=== PATIENT | female | born 1950 | race Two or more races ===

== ENCOUNTER 2020-09-22 15:38 | Emergency (ER) | payer MEDICARE, MEDICAID, SELFPAY ==
--- NOTE | ~2020-09-22 | XR_ITS ---
EXAMINATION: XR TOES, RIGHT CLINICAL INFORMATION: Fracture fifth toe COMPARISON: None TECHNIQUE: 3 views of the right toes were obtained. FINDINGS: There is loss of first MTP joint with mild periarticular spurring. There is no fracture or dislocation of the fifth digit. There is soft tissue callus formation along the proximal second metatarsal joint likely from a healing stress fracture.. The soft tissues are unremarkable. XR/XR toe RT min 2V IMPRESSION: No fracture or dislocation fifth digit. The soft tissues are normal. There is callus formation proximal fifth metatarsal likely healing fracture.
[2020-09-22 15:47] VITALS: BP 160/70; PULSE 81; RESP 16; TEMP 36.5; O2SAT 98; BMI 21.7
--- NOTE | 2020-09-22 16:09 | ED_ITS ---
HPI - Extremity Injury (Lower) General Chief Complaint: Extremity Injury, Lower Stated Complaint: PINKY TOE INJ Time Seen by Provider: 09/22/20 15:49 Source: patient Mode of arrival: ambulatory Limitations: no limitations History of Present Illness HPI Narrative: Patient comes emergency room complaining of 5th toe pain. Patient states 2 days ago she was walking barefooted around her house, she hit her toe against the base of the sofa. Patient states her pinky toe is swollen and painful and cannot wear shoes because it hurts Related Data Allergies Allergy/AdvReac Type Severity Reaction Status Date / Time ibuprofen [From Motrin] Allergy Nausea Verified 09/22/20 15:52 Review of Systems Review of Systems: Constitutional : No Weight loss, No Fever, No Chills, No Night Sweats, No Fatigue, No Malaise ENT/Mouth : No Hearing loss, No Ear Pain, No Nasal Congestion, No Sinus Pain, No Hoarseness, No sore throat, No Rhinorrhea, No Swallowing Difficulty Eyes: No Eye Pain, No Swelling, No Redness, No Foreign Body, No Discharge, No Vision Changes Cardiovascular : No Chest Pain, No SOB, No Dyspnea on Exertion, No Orthopnea, No Edema, No Palpitations Respiratory : No Cough, No Sputum, No Wheezing, No Smoke Exposure, No Dyspnea Gastrointestinal : No Nausea, No Vomiting, No Diarrhea, No Constipation, No abdominal Pain, No Hematochezia, No Melena Genitourinary : no irregular bleeding, No Dysuria, No Urinary Frequency, No Hematuria, No Urinary Incontinence, No Urgency, No Flank Pain, No Urinary Flow Changes, No Hesitancy Musculoskeletal : Right 5th toe pain swelling, No Myalgias Skin : No Skin Lesions, No rash Neuro : No Weakness, No Numbness, No Paresthesias, No Loss of Consciousness, No Dizziness, No Headache Psych : No Anxiety/Panic, No Depression, No SI/HI/AH/VH, No Social Issues, Heme/Lymph: No Bruising, No Bleeding,No Lymphadenopathy Endocrine : No Polyuria, No Polydipsia, No Temperature Intolerance [facility] Past Medical History Medical History (Updated 09/22/20 @ 17:31 by Latonia Norton MD) Asthma Depression Occlusion of femoral artery Social History Social History Alcohol intake: never Smoked in Last 30 Days: No Use of substances other than those prescribed or required for medical reasons: No Advance Directives: No Advance Directives Information Provided: Yes Physical Exam Vital Signs: Vital Signs: Last Vital Signs Temp 97.7 F 09/22/20 15:47 Pulse 81 09/22/20 15:47 Resp 16 09/22/20 15:47 BP 160/70 H 09/22/20 15:47 Pulse Ox 98 09/22/20 15:47 Body Mass Index 21.7 Appearance: Alert. Oriented X3. No acute distress. Eyes: Pupils equal, round and reactive to light. ENT: Pharynx normal. Neck: Normal inspection. Neck supple. No lymph nodes noted. No crepitus CVS: Normal heart rate and rhythm. Pulses normal. Normal S1 and S2 Respiratory: No respiratory distress. Breath sounds normal. No Wheezing. No rales Abdomen: Soft and nontender. No rigidity. No distention. good BS x4 Skin: Skin warm and dry. Normal skin color. Normal skin turgor. Extremities: No lower extremity edema. Fifth toe mild to moderate swelling, no cellulitis, painful to touch. No metatarsal pain to palpation, color of the other 4 toes within normal limits, 5th toe has very mild ecchymosis Neuro: Oriented X 3. No motor deficit. No sensory deficit. Moving all extermities. No slurred speech. Course Course Course Narrative: I discussed the x-ray with the patient, no acute fracture. Patient's pain likely secondary to a contusion MDM - Extremity Injury (Lower) Imaging Data Toe x-ray: Radiologist's impression: FINDINGS: There is loss of first MTP joint with mild periarticular spurring. There is no fracture or dislocation of the fifth digit. There is soft tissue callus formation along the proximal second metatarsal joint likely from a healing stress fracture.. The soft tissues are unremarkable. XR/XR toe RT min 2V IMPRESSION: No fracture or dislocation fifth digit. The soft tissues are normal. There is callus formation proximal fifth metatarsal likely healing fracture. Discharge Plan Discharge Clinical Impression: Contusion Qualifiers: Encounter type: initial encounter Contusion area: toe Toe: unspecified toe Laterality: right Qualified Code(s): S90.121A - Contusion of right lesser toe(s) without damage to nail, initial encounter Patient Disposition: Home, Self-Care Instructions: Foot Contusion (ED) Additional Instructions: Please follow-up with your primary care physician tomorrow. If you have any worsening or new symptoms, please return to the emergency room or call 911
== END 2020-09-22 17:48 | disposition home or self-care (01) ==
PROVIDERS: Emergency Provider Emergency Medicine; PCP Internal Medicine
DX: S90.121A Contusion of right lesser toe(s) without damage to nail, initial encounter (principal); M79.674 Pain in right toe(s); Y29.XXXA Contact with blunt object, undetermined intent, initial encounter; Y93.9 Activity, unspecified; Y92.009 Unspecified place in unspecified non-institutional (private) residence as the place of occurrence of the external cause; Y99.9 Unspecified external cause status
CPT/HCPCS: 73660; 99283; 99284

== ENCOUNTER 2022-01-23 12:24 | Emergency (ER) | payer MEDICARE, MEDICAID, SELFPAY ==
--- NOTE | ~2022-01-23 | MR_ITS ---
EXAMINATION: MR ABDOMEN WITHOUT CONTRAST CLINICAL INFORMATION: History of abdominal pain and weight loss. Dilated bile ducts seen on abdomen CT. COMPARISON: CT abdomen from 01/24/2022. TECHNIQUE: MR imaging of the abdomen performed using standard sequences on a high-field magnet without intravenous contrast. FINDINGS: LUNG BASES: Unremarkable. LIVER: Liver has normal size, contour and parenchymal signal. No hepatic mass. No cirrhotic morphology or steatosis. GALLBLADDER AND BILIARY TREE: Gallbladder is surgically absent. The central right and left intrahepatic ducts are mildly dilated. The common hepatic duct and common bile duct are dilated, with CBD measuring approximately 1 cm diameter at the level of the pancreatic head. No evidence of common duct stricture or choledocholithiasis. The chronicity of the duct dilatation is uncertain since there are no old comparison imaging exams. There is no evidence of an ampullary mass. PANCREAS: No acute findings within the atrophied pancreas. No pancreatic mass, ductal dilatation or edema. No peripancreatic fluid. SPLEEN: Normal. ADRENAL GLANDS: Normal. KIDNEYS: Kidneys are normal in size and parenchymal signal. No renal mass, hydronephrosis or perinephric edema. BOWEL AND PERITONEUM: Stomach is unremarkable. No dilated loops of bowel. No bowel wall thickening or mesenteric fat stranding. No ascites or peritoneal nodules. VASCULATURE: The atherosclerotic abdominal aorta is normal in caliber. Inferior vena cava is normal for a noncontrast examination. LYMPH NODES: No pathologic sized lymph nodes in the abdomen. SKELETAL: No suspicious bone lesions. There is susceptibility artifact produced by intervertebral fusion cages at L5-S1. MR/MR MRCP IMPRESSION: Prior cholecystectomy. The common duct and central intrahepatic ducts are dilated. The chronicity of the ductal dilatation is uncertain since there are no old comparison exams. However, no evidence of choledocholithiasis or obstructing mass.
--- NOTE | ~2022-01-23 | CT_ITS ---
EXAMINATION: CT ABDOMEN AND PELVIS WITH CONTRAST CLINICAL INFORMATION: Abdominal pain, weight loss COMPARISON: None TECHNIQUE: Multidetector volumetric images were obtained from the superior aspect of the liver through the pubic symphysis following administration 85 mL of Omnipaque 350 intravenous contrast. Sagittal and coronal reformatted images were obtained on the technologist's workstation. Oral contrast: No This CT examination was performed using dose optimization techniques as appropriate, variously including the following: *Automated exposure control *Adjustment of mA and/or kV according to patient size (this includes techniques or standardized protocols for targeted exams where dose is matched to indication/reason for exam; i.e. extremities or head) *Use of iterative reconstruction technique DLP: 247 mGy-cm FINDINGS: LUNG BASES: The visualized lung bases are unremarkable. LIVER, GALLBLADDER, AND BILIARY TREE: The liver is normal in size, shape, and attenuation. Status post cholecystectomy. There is intrahepatic and extrahepatic biliary ductal dilatation of uncertain clinical significance in this setting. PANCREAS: Unremarkable. SPLEEN: Unremarkable. ADRENAL GLANDS: Unremarkable. KIDNEYS AND URETERS: The kidneys are normal in size, shape, and attenuation. Multifocal cortical scarring noted in the left kidney. No hydronephrosis, hydroureter, or obstructing calculi seen. No perinephric stranding. BLADDER: Unremarkable. GASTROINTESTINAL TRACT: No evidence of bowel obstruction. The sigmoid colon is tortuous. No significant bowel wall thickening is seen. No free fluid or free air is seen. ABDOMINAL WALL: No significant hernia is appreciated. LYMPH NODES: Normal. VASCULAR: Scattered prostatic calcifications. PELVIC VISCERA: Grossly unremarkable. OSSEOUS STRUCTURES: Intervertebral disc hardware noted at L5-S1. CT/CT abdomen pelvis w con IMPRESSION: Intrahepatic and extrahepatic biliary ductal dilatation, of uncertain clinical significance in the setting of prior cholecystectomy. Correlation with liver function tests is advised. If clinically warranted, evaluation for distal common bile duct obstruction could be performed with MRI/MRCP or ERCP.
[2022-01-23 12:26] VITALS: BP 178/73; PULSE 80; RESP 18; TEMP 36.7; O2SAT 98; BMI 17.4
[2022-01-23 16:52] LABS: MANUAL DIFF FLAG NO
[2022-01-23 16:55] LABS: Basophils Absolute Auto 0.1 X10*3/uL (0.0-0.2); Basophils Percent Auto 1.1 % (0-2); Eosinophils Percent Auto 0.8 % (0-4); Hematocrit 39.7 % (37.0-47.0); Hemoglobin 13.4 g/dl (12.0-16.0); Imm Gran Abs Auto 0.01 X10*3/uL (0.00-0.03); Imm Gran Pct Auto 0.2 % (0.0-0.4); Lymphocytes Absolute Auto 2.1 X10*3/uL (1.2-4.9); Lymphocytes Percent Auto 39.7 % (20-40); Mean Corpuscular HGB Conc 33.8 g/dl (31.0-35.0); Mean Corpuscular Hemoglobin 30.8 pg (27.0-33.0); Mean Corpuscular Volume 91.3 fL (80.0-98.0); Mean Platelet Volume 10.1 fL (9.4-12.3); Monocytes Absolute Auto 0.3 X10*3/uL (0.1-1.2); Monocytes Percent Auto 5.6 % (2-11); Neutrophils Absolute Auto 2.8 x10*3/uL (2.0-8.3); Neutrophils Percent Auto 52.6 % (45-73); Platelet Count 261 X10*3/uL (160-400); Red Blood Count 4.35 X10*6/uL (4.20-5.50); Red Cell Distribution Width 12.7 % (11.0-16.0); White Blood Count 5.2 X10*3/uL (4.8-10.8)
[2022-01-23 17:26] LABS: Alanine Aminotransferase 13 U/L (0-31); Albumin Level 4.2 g/dL (3.5-5.0); Alkaline Phosphatase 85 U/L (39-117); Anion Gap 14 (12-20); Aspartate Amino Transferase 18 U/L (5-31); Bilirubin Total 0.6 mg/dL (0.0-1.0); Blood Urea Nitrogen 12 mg/dL (9-16); Calcium 8.7 mg/dL (8.4-10.2); Carbon Dioxide 20 mmol/L (22-29); Chloride 107 mmol/L (96-108); Creatinine Clr Calc Pharmacy 50.8; Estimated Glomerular Filt Rate > 60; Glucose Random 108 mg/dL (60-115); Potassium 4.1 mmol/L (3.3-5.1); Sodium 137 mmol/L (135-145); Total Protein 7.1 g/dL (6.5-8.0)
[2022-01-23 23:54] VITALS: BP 185/65; PULSE 74; RESP 20; TEMP 36.9; O2SAT 99
--- NOTE | 2022-01-24 | ED.GENADULT ---
HPI - General Adult General Chief complaint: General Medical Stated complaint: Headache/Abd pain Time Seen by Provider: 01/23/22 20:17 Source: patient Mode of arrival: ambulatory Limitations: no limitations History of Present Illness HPI narrative: 71-year-old female came in for evaluation of abdominal pain and nonbloody watery diarrhea. For the last 3 days been complaining of mid abdominal pain with nonbloody watery diarrhea last bowel movement was this morning, patient stated she also lost about 50 lb over the past year, patient had recent colonoscopy reportedly by the patient had multiple precancerous polyp that was removed patient is scheduled to have next colonoscopy in 1 year. Abdominal pain started 3 days ago to the left lower abdomen which is constant moderate 5/10 described as dull aching pain with no radiation, pain is associated with nonbloody watery diarrhea, patient declined any recent travel, patient had a recent use of antibiotic 2 weeks ago, no fever, no chills. Patient had a history of pancreatitis followed by surgical removal of the gallbladder Many years ago. Related Data Allergies Allergy/AdvReac Type Severity Reaction Status Date / Time ibuprofen [From Motrin] Allergy Nausea Verified 09/22/20 15:52 Review of Systems Review of Systems: All other systems are reviewed and are negative Constitutional: Reports as per HPI and Reports no additional constitutional complaints Eyes: Reports as per HPI and Reports no additional eye complaints Reports system reviewed and no additional complaints, except as documented Cardiovascular: Reports as per HPI and Reports no additional cardiovascular complaints Respiratory: Reports as per HPI and Reports no additional respiratory complaints Gastrointestinal: Reports as per HPI and Reports no additional gastrointestinal complaints Genitourinary: Reports no additional female genitourinary complaints Musculoskeletal: Reports no additional musculoskeletal complaints Skin/Breast: Reports system reviewed and no additional complaints, except as docu Psychiatric: Reports no additional psychiatric complaints Endocrine: Reports no additional endocrine complaints Hematologic/Lymphatic: Reports no additional hematologic/lymphatic complaints Allergic/Immunologic: Reports no additional allergic/immunologic complaints Reports system reviewed and no additional complaints, except as documented and Reports Abnormal speech present [facility] Past Medical History Medical History Asthma Depression Occlusion of femoral artery Social History Social History Alcohol intake: never Advance Directives: No Physical Exam ED Vital Signs: Vital Signs - 24 hr 07/18/22 12:26 01/23/22 23:54 01/24/22 00:09 Temperature 98.0 F 98.4 F Pulse Rate 80 74 70 Respiratory Rate 18 20 14 Blood Pressure 178/73 H 185/65 H 187/76 H Pulse Oximetry 98 99 99 Oxygen Delivery Method Room Air Room Air Room Air 01/24/22 01:56 Temperature Pulse Rate Respiratory Rate 20 Blood Pressure Pulse Oximetry Oxygen Delivery Method BMI result Body Mass Index 17.4 vital signs have been reviewed as appeared to be correct. Blood pressure normal. Heart rate normal. Respiration rate normal. Temperature normal. Oxygen saturation normal. Appearance: Alert. Oriented X3. No acute distress. Head: Normal external exam. Normocephalic. Atraumatic. No Liang signs noted. No raccoon eyes noted Eyes: PERRLA. EOMI. Conjunctiva and sclera normal. Eyelids normal. ENT: TM's Normal. Pharynx normal. Uvula midline. Moist mucous membranes. No trismus noted. No drooling noted. No muffled voice noted. Neck: Normal inspection. Neck supple. FROM. No adenopathy. Thyroid Normal. No meningeal signs. No neck mass noted. CVS: Normal heart rate and rhythm. Heart sound normal. No murmurs noted. Pulses normal throughout. Respiratory: No respiratory distress. Painless inspiration. Breath sounds normal. No wheezes/rales/rhonchi noted. Chest nontender. No accessory muscle usage noted or decreased air movement noted. Abdomen: Soft, mild left abdominal tenderness with no rebound tenderness, no guarding.. Bowel sounds normal in all 4 quadrants. No distention noted. No organomegaly noted. No visible injury noted. Back: No CVA tenderness. Full range of motion noted. Skin: Skin warm and dry. Normal skin color. Normal skin turgor. No rashes/lesions/lacerations noted. Extremities: No lower extremity edema. Extremities exhibit normal range of motion. Extremities nontender. Neuro: Oriented X 3. Cranial nerve exam: II-XII are grossly intact No motor deficit. No sensory deficit. Reflexes normal. Course Course Course Narrative: 71-year-old female with abdominal pain that is worsening over the past 3 days, CT of the abdomen pelvis showed extrahepatic biliary dilatation , patient status post cholecystectomy since patient is still symptomatic with severe abdominal pain that required multiple doses of narcotic and unexplainable 50 lb loss of weight will consider MRCP in the morning. the case signed out to Dr. Decker. Medical Decision Making Lab Data Lab results reviewed: Yes I reviewed the patient's lab results. Result diagrams: 01/23/22 16:48 01/23/22 16:48 Labs: Lab Results 01/23/22 01/23/22 01/24/22 Range/Units 16:48 16:48 00:08 WBC 5.2 (4.8-10.8) X10*3/uL RBC 4.35 (4.20-5.50) X10*6/uL Hgb 13.4 (12.0-16.0) g/dl Hct 39.7 (37.0-47.0) % MCV 91.3 (80.0-98.0) fL MCH 30.8 (27.0-33.0) pg MCHC 33.8 (31.0-35.0) g/dl RDW 12.7 (11.0-16.0) % Plt Count 261 (160-400) X10*3/uL MPV 10.1 (9.4-12.3) fL Immature Gran % (Auto) 0.2 (0.0-0.4) % Neut % (Auto) 52.6 (45-73) % Lymph % (Auto) 39.7 (20-40) % Martin % (Auto) 5.6 (2-11) % Eos % (Auto) 0.8 (0-4) % Baso % (Auto) 1.1 (0-2) % Lymph # (Auto) 2.1 (1.2-4.9) X10*3/uL Martin # (Auto) 0.3 (0.1-1.2) X10*3/uL Eos # (Auto) 0.0 (0.0-0.4) X10*3/uL Baso # (Auto) 0.1 (0.0-0.2) X10*3/uL Abs Immat Gran (auto) 0.01 (0.00-0.03) X10*3/uL Absolute Neuts (auto) 2.8 (2.0-8.3) x10*3/uL Absolute Nucleated RBC 0.000 (0.0-0.012) X10*3/uL Nucleated RBC % (auto) 0.0 (0.0-0.2) /100WBC Sodium 137 (135-145) mmol/L Potassium 4.1 (3.3-5.1) mmol/L Chloride 107 (96-108) mmol/L Carbon Dioxide 20 L (22-29) mmol/L Anion Gap 14 (12-20) BUN 12 (9-16) mg/dL Creatinine 0.71 (0.5-1.4) mg/dL Estim Creat Clear Calc 50.8 Estimated GFR > 60 Random Glucose 108 (60-115) mg/dL Calcium 8.7 (8.4-10.2) mg/dL Total Bilirubin 0.6 (0.0-1.0) mg/dL AST 18 (5-31) U/L ALT 13 (0-31) U/L Alkaline Phosphatase 85 (39-117) U/L Total Protein 7.1 (6.5-8.0) g/dL Albumin 4.2 (3.5-5.0) g/dL Lipase 9 (8-78) U/L Urine Color Urine Appearance Urine pH (5.0-8.0) Ur Specific Ullin (1.005-1.025) Urine Protein (NEG-TRACE) MG/DL Urine Glucose (UA) (NEG) MG/DL Urine Ketones (NEG) MG/DL Urine Blood (NEG) Urine Nitrite (NEG) Ur Leukocyte Esterase (NEG) Urine RBC (0) /HPF Urine WBC (0-4) /HPF Ur Squamous Epith Cells /LPF Urine Bacteria /LPF Urine Mucus /LPF COVID-19 (DEBBIE) Negative (Negative) COVID-19 Clin Com See Note 01/24/22 Range/Units 00:08 WBC (4.8-10.8) X10*3/uL RBC (4.20-5.50) X10*6/uL Hgb (12.0-16.0) g/dl Hct (37.0-47.0) % MCV (80.0-98.0) fL MCH (27.0-33.0) pg MCHC (31.0-35.0) g/dl RDW (11.0-16.0) % Plt Count (160-400) X10*3/uL MPV (9.4-12.3) fL Immature Gran % (Auto) (0.0-0.4) % Neut % (Auto) (45-73) % Lymph % (Auto) (20-40) % Martin % (Auto) (2-11) % Eos % (Auto) (0-4) % Baso % (Auto) (0-2) % Lymph # (Auto) (1.2-4.9) X10*3/uL Martin # (Auto) (0.1-1.2) X10*3/uL Eos # (Auto) (0.0-0.4) X10*3/uL Baso # (Auto) (0.0-0.2) X10*3/uL Abs Immat Gran (auto) (0.00-0.03) X10*3/uL Absolute Neuts (auto) (2.0-8.3) x10*3/uL Absolute Nucleated RBC (0.0-0.012) X10*3/uL Nucleated RBC % (auto) (0.0-0.2) /100WBC Sodium (135-145) mmol/L Potassium (3.3-5.1) mmol/L Chloride (96-108) mmol/L Carbon Dioxide (22-29) mmol/L Anion Gap (12-20) BUN (9-16) mg/dL Creatinine (0.5-1.4) mg/dL Estim Creat Clear Calc Estimated GFR Random Glucose (60-115) mg/dL Calcium (8.4-10.2) mg/dL Total Bilirubin (0.0-1.0) mg/dL AST (5-31) U/L ALT (0-31) U/L Alkaline Phosphatase (39-117) U/L Total Protein (6.5-8.0) g/dL Albumin (3.5-5.0) g/dL Lipase (8-78) U/L Urine Color YELLOW Urine Appearance CLEAR Urine pH 6.0 (5.0-8.0) Ur Specific Ullin 1.020 (1.005-1.025) Urine Protein NEG (NEG-TRACE) MG/DL Urine Glucose (UA) NEG (NEG) MG/DL Urine Ketones NEG (NEG) MG/DL Urine Blood 1+ H (NEG) Urine Nitrite NEG (NEG) Ur Leukocyte Esterase NEG (NEG) Urine RBC 1-4 (0) /HPF Urine WBC 1-4 (0-4) /HPF Ur Squamous Epith Cells 1+ /LPF Urine Bacteria 2+ /LPF Urine Mucus 2+ /LPF COVID-19 (DEBBIE) (Negative) COVID-19 Clin Com Imaging Data CT scan - abdomen: Attestation: I personally reviewed and interpreted this imaging study as follows: Radiologist's impression: Intrahepatic and extrahepatic biliary ductal dilatation, of uncertain clinical significance in the setting of prior cholecystectomy. Correlation with liver function tests is advised. If clinically warranted, evaluation for distal common bile duct obstruction could be performed with MRI/MRCP or ERCP. Discharge Plan Discharge Clinical Impression: Abdominal pain Patient Disposition: Still a Patient
[2022-01-24 00:09] VITALS: BP 187/76; PULSE 70; RESP 14; O2SAT 99
[2022-01-24 00:21] LABS: Lipase 9 U/L (8-78)
[2022-01-24 00:31] LABS: Appearance Urine CLEAR; Color Urine YELLOW; Glucose Urine UA NEG (NEG); Leukocyte Esterase Urine NEG (NEG); Nitrite Urine NEG (NEG); UACC Culture Trigger NO; Urine Blood 1+ (NEG); Urine Ketones NEG (NEG); Urine Protein NEG (NEG-TRACE)
[2022-01-24 00:45] LABS: Bacteria Urine 2+ /LPF; Mucus Urine 2+ /LPF; Squamous Epithelial Cell Urine 1+ /LPF
[2022-01-24 00:46] LABS: COVID-19 Test Negative (Negative)
[2022-01-24] MEDS: iohexoL 350 MG/ML 100 ML INFUS..BTL IV (00:51)
[2022-01-24] MEDS: 0.9 % Sodium Chloride 1,000 ML 999 ML IV (01:24)
[2022-01-24 01:56] VITALS: RESP 20
[2022-01-24] MEDS: Morphine Sulfate 2 MG/ML CARTRIDGE 1 MG IVPUSH (01:56)
[2022-01-24 06:08] VITALS: BP 154/56; PULSE 59; RESP 18; O2SAT 97
[2022-01-24 06:15] VITALS: RESP 18
[2022-01-24] MEDS: HYDROmorphone HCl 1 MG/ML SYRINGE IVPUSH (06:15)
[2022-01-24 08:06] VITALS: BP 163/57; PULSE 53; RESP 14; TEMP 36.6; O2SAT 95
== END 2022-01-24 11:28 | disposition home or self-care (01) ==
PROVIDERS: Emergency Medicine; Emergency Provider Emergency Medicine; PCP Internal Medicine
DX: R10.32 Left lower quadrant pain (principal); R63.4 Abnormal weight loss; Z68.1 Body mass index [BMI] 19.9 or less, adult; R19.7 Diarrhea, unspecified; K83.9 Disease of biliary tract, unspecified; Z20.822 Contact with and (suspected) exposure to COVID-19; Z87.891 Personal history of nicotine dependence; Z90.49 Acquired absence of other specified parts of digestive tract
CPT/HCPCS: 74177; 74181; 80053; 81001; 83690; 85025; 87635; 96361; 96374; 96375; 99284; 99285; J1170; J2270; Q9967

== ENCOUNTER 2023-02-22 21:26 | Emergency (ER) | payer MEDICARE, MEDICAID, SELFPAY ==
--- NOTE | ~2023-02-22 | CT_ITS ---
EXAMINATION: CT ABDOMEN AND PELVIS WITH CONTRAST CLINICAL INFORMATION: Lower abdominal pain COMPARISON: 01/24/2022 TECHNIQUE: Multidetector volumetric images were obtained from the superior aspect of the liver through the pubic symphysis following administration 85 mL of Omnipaque 350 intravenous contrast. Sagittal and coronal reformatted images were obtained on the technologist's workstation. Oral contrast: No This CT examination was performed using dose optimization techniques as appropriate, variously including the following: *Automated exposure control *Adjustment of mA and/or kV according to patient size (this includes techniques or standardized protocols for targeted exams where dose is matched to indication/reason for exam; i.e. extremities or head) *Use of iterative reconstruction technique DLP: 280 mGy-cm FINDINGS: LUNG BASES: Left basilar atelectasis. Normal heart size. LIVER, GALLBLADDER, AND BILIARY TREE: The liver is normal in size, shape, and attenuation. No focal hepatic lesion. Gallbladder is absent. There is intrahepatic and extrahepatic biliary ductal dilatation. The common bile duct measures 1 cm. No ductal filling defect seen. The appearance is similar to previous. PANCREAS: Unremarkable. SPLEEN: Unremarkable. ADRENAL GLANDS: Unremarkable. KIDNEYS AND URETERS: The kidneys are normal in size, shape, and attenuation. No hydronephrosis, hydroureter, or calculi seen. No perinephric stranding. BLADDER: Unremarkable. GASTROINTESTINAL TRACT: The stomach is unremarkable. Normal caliber small bowel. No obstruction. No colonic wall thickening or inflammation. Appendix not seen. No free air or free fluid. ABDOMINAL WALL: No significant hernia is appreciated. LYMPH NODES: Normal. VASCULAR: Normal caliber aorta with mild atherosclerotic calcification. PELVIC VISCERA: No pelvic mass. OSSEOUS STRUCTURES: No acute or suspicious osseous abnormality. Disc spacer at L5-S1. CT/CT abdomen pelvis w IV con IMPRESSION: 1. No acute findings in the abdomen or pelvis. No inflammatory changes. 2. Intrahepatic and extrahepatic biliary ductal dilatation is similar to previous imaging. Fleischner guidelines were followed.
[2023-02-22 21:32] VITALS: BP 146/68; PULSE 81; RESP 18; TEMP 36.6; O2SAT 98; BMI 18.3
[2023-02-22 21:57] LABS: MANUAL DIFF FLAG NO
[2023-02-22 21:58] LABS: Basophils Absolute Auto 0.1 X10*3/uL (0.0-0.2); Basophils Percent Auto 1.9 % (0-2); Eosinophils Absolute Auto 0.1 X10*3/uL (0.0-0.4); Eosinophils Percent Auto 2.3 % (0-4); Hematocrit 40.4 % (37.0-47.0); Hemoglobin 13.8 g/dl (12.0-16.0); Imm Gran Abs Auto 0.01 X10*3/uL (0.00-0.03); Imm Gran Pct Auto 0.2 % (0.0-0.4); Lymphocytes Absolute Auto 2.6 X10*3/uL (1.2-4.9); Lymphocytes Percent Auto 51.3 % (20-40); Mean Corpuscular HGB Conc 34.2 g/dl (31.0-35.0); Mean Corpuscular Hemoglobin 30.1 pg (27.0-33.0); Mean Corpuscular Volume 88.2 fL (80.0-98.0); Mean Platelet Volume 9.7 fL (9.4-12.3); Monocytes Absolute Auto 0.4 X10*3/uL (0.1-1.2); Monocytes Percent Auto 8.5 % (2-11); Neutrophils Absolute Auto 1.8 x10*3/uL (2.0-8.3); Neutrophils Percent Auto 35.8 % (45-73); Platelet Count 291 X10*3/uL (160-400); Red Blood Count 4.58 X10*6/uL (4.20-5.50); Red Cell Distribution Width 12.9 % (11.0-16.0); White Blood Count 5.2 X10*3/uL (4.8-10.8)
[2023-02-22 22:22] LABS: Alanine Aminotransferase 11 U/L (0-31); Albumin Level 4.1 g/dL (3.5-5.0); Alkaline Phosphatase 55 U/L (39-117); Anion Gap 12 (12-20); Aspartate Amino Transferase 18 U/L (5-31); Bilirubin Direct 0.2 mg/dL (0.0-0.5); Bilirubin Total 0.4 mg/dL (0.0-1.0); Blood Urea Nitrogen 12 mg/dL (9-16); Calcium 9.3 mg/dL (8.4-10.2); Carbon Dioxide 24 mmol/L (22-29); Chloride 105 mmol/L (96-108); Estimated Glomerular Filt Rate > 60; Glucose Random 111 mg/dL (60-115); Lipase 15 U/L (8-78); Potassium 3.6 mmol/L (3.3-5.1); Sodium 137 mmol/L (135-145); Total Protein 7.3 g/dL (6.5-8.0)
--- NOTE | 2023-02-23 00:50 | ED.GENADULT ---
HPI - General Adult General Chief complaint: Nausea/Vomiting/Diarrhea Stated complaint: Weakness/ N/V/D Time Seen by Provider: 02/23/23 00:28 Source: patient, RN notes reviewed and old records reviewed Mode of arrival: ambulatory Limitations: no limitations History of Present Illness HPI narrative: 72-year-old female presents for evaluation of abdominal pain. Patient has a history of GERD, asthma, depression, previous appendectomy, cholecystectomy She reports lower abdominal pain x6 days She has been nauseous and vomiting everything she tries to eat She continues to have watery stool and passed gas Denies any black or bloody stool She reports right and left lower abdominal pain that is 8/10 Denies any fevers or chills Denies any urinary complaints Patient denies any sick contacts, recent travel, recent antibiotic use No other complaints or concerns at this time Related Data Previous Rx's Medication Instructions Recorded omeprazole 20 mg capsule,delayed 20 mg PO BID 2 weeks #28 caps 01/24/22 release ondansetron 4 mg disintegrating 4 mg PO Q8H PRN nausea and 01/24/22 tablet vomiting #20 tabs ondansetron 4 mg disintegrating 4 mg PO Q8H PRN nausea and 02/23/23 tablet vomiting #20 tabs Allergies Allergy/AdvReac Type Severity Reaction Status Date / Time ibuprofen [From Motrin] Allergy Nausea Verified 02/22/23 21:37 Review of Systems Constitutional: Constitutional: Denies chills, Denies fever(s), Reports lethargy and Reports malaise Cardiovascular: Cardiovascular: Denies chest pain and Denies dyspnea Respiratory: Respiratory: Denies cough and Denies dyspnea Gastrointestinal: Gastrointestinal: Reports abdominal pain, Denies melena, Denies hematochezia, Reports diarrhea, Reports loose stools, Reports nausea, Reports vomiting and Denies hematemesis Genitourinary: Genitourinary: Denies dysuria Musculoskeletal: Musculoskeletal: Denies back pain Integumentary/Breasts: Skin/Breast: Denies rash PMFSH Past Medical History Medical History Asthma Depression Occlusion of femoral artery Social History Social History Alcohol intake: never Patient Tobacco Use Status: Former Tobacco user Smoked in Last 30 Days: No Use of substances other than those prescribed or required for medical reasons: No Advance Directives: No Advance Directives Information Provided: Yes Physical Exam ED Vital Signs: Vital Signs - 24 hr 02/22/23 21:32 02/23/23 00:55 Temperature 97.8 F 97.9 F Pulse Rate 81 67 Respiratory Rate 18 18 Blood Pressure 146/68 H 157/65 H Pulse Oximetry 98 97 Oxygen Delivery Method Room Air Room Air BMI result Body Mass Index 18.3 Const General: healthy appearing, comfortable, no acute distress, alert and awake Nutritional Appearance: well nourished Orientation/consciousness: patient oriented x3 HENMT Head: Yes normocephalic and Yes atraumatic Eyes Eyelids: Yes eyelids normal Conjunctivae: conjunctivae normal Sclerae: sclerae normal Corneas: corneas normal Pupils: Equal, round and reactive pupils present EOM: EOMs intact bilaterally Resp Effort & Inspection: normal respiratory effort, able to speak in complete sentences and not labored Cardio Rate: regular rate Rhythm: regular rhythm GI Inspection: No distended Palpation (GI): Soft to palpation, not firm and not rigid Auscultation: normoactive bowel sounds Skin General skin exam: no rashes or lesions noted and elasticity normal Neuro General: patient oriented x3 Cranial nerves: Yes Equal, round and reactive pupils present and Yes Bilaterally intact EOM present Cognition (Neuro): normal cognition Extrem Other: Moving all extremities well without any obvious deformities Course Reevaluation(s) Reevaluation #1: Patient's labs and CT resulted showing no concerning abnormalities. The patient has not given a stool sample or a urine sample. I have a low suspicion for urinary tract infection was this should not cause diarrhea and she also denies any burning with urination or urinary frequency. The patient likely be discharged will follow-up with her PCP regarding these test. She also has no risk factors for C diff so the sister to be less likely Time: 01:37 Medications Administered Generic Name Dose Route Start Last Admin Trade Name Freq PRN Reason Stop Dose Admin Sodium Chloride 1,000 mls @ 999 mls/hr 02/23/23 00:45 02/23/23 01:11 Ns IV 02/23/23 01:45 999 mls/hr .Q1H1M AURELIA Administration Discontinued Medications Generic Name Dose Route Start Last Admin Trade Name Freq PRN Reason Stop Dose Admin Iohexol 85 ml 02/23/23 00:50 02/23/23 00:51 Iohexol 350 Mg/Ml 100 Ml Infus..Btl IV 02/23/23 00:51 85 ml ONCE ONE Administration Morphine Sulfate 2 mg 02/23/23 00:32 02/23/23 01:12 Morphine Sulfate 2 Mg/Ml Cartridge IVPUSH 02/23/23 00:33 2 mg ONCE ONE Administration Protocol Ondansetron HCl 4 mg 02/23/23 00:32 02/23/23 01:12 Ondansetron Hcl 4 Mg/2 Ml Vial IVPUSH 02/23/23 00:33 4 mg ONCE ONE Administration Medical Decision Making Medical Decision Making MDM Narrative: 9-year-old female presents for evaluation of lower abdominal pain, diarrhea. She continues to pass gas, denies any black or bloody stool. She is quite tender on exam but is nondistended. Will still get a UA, stool study and she reports persistent watery diarrhea but she has no risk factors for C diff. Will get a CT scan of the abdomen pelvis with IV contrast to evaluate for colitis/diverticulitis. I have a low suspicion for bowel obstruction. Patient medicated fluids, morphine, Zofran. Labs are reassuring Differential Diagnosis Differential Diagnoses: The differential diagnosis associated with the presentation includes Acute diarrhea Colitis Diverticulitis Gastroenteritis Small bowel obstruction Ileus Lab Data MDM Lab Attestation statement: I reviewed the patient's lab results. No leukocytosis with a normal white count of 5.2, no left shift. No anemia. Normal platelet count of 291 K no electrolyte abnormalities. Normal renal function and normal liver function tests 02/22/23 21:53 02/22/23 21:53 Labs: Lab Results 02/22/23 02/22/23 Range/Units 21:53 21:53 WBC 5.2 (4.8-10.8) X10*3/uL RBC 4.58 (4.20-5.50) X10*6/uL Hgb 13.8 (12.0-16.0) g/dl Hct 40.4 (37.0-47.0) % MCV 88.2 (80.0-98.0) fL MCH 30.1 (27.0-33.0) pg MCHC 34.2 (31.0-35.0) g/dl RDW 12.9 (11.0-16.0) % Plt Count 291 (160-400) X10*3/uL MPV 9.7 (9.4-12.3) fL Immature Gran % (Auto) 0.2 (0.0-0.4) % Neut % (Auto) 35.8 L (45-73) % Lymph % (Auto) 51.3 H (20-40) % [place] % (Auto) 8.5 (2-11) % Eos % (Auto) 2.3 (0-4) % Baso % (Auto) 1.9 (0-2) % Lymph # (Auto) 2.6 (1.2-4.9) X10*3/uL [place] # (Auto) 0.4 (0.1-1.2) X10*3/uL Eos # (Auto) 0.1 (0.0-0.4) X10*3/uL Baso # (Auto) 0.1 (0.0-0.2) X10*3/uL Abs Immat Gran (auto) 0.01 (0.00-0.03) X10*3/uL Absolute Neuts (auto) 1.8 L (2.0-8.3) x10*3/uL Absolute Nucleated RBC 0.000 (0.0-0.012) X10*3/uL Nucleated RBC % (auto) 0.0 (0.0-0.2) /100WBC Sodium 137 (135-145) mmol/L Potassium 3.6 (3.3-5.1) mmol/L Chloride 105 (96-108) mmol/L Carbon Dioxide 24 (22-29) mmol/L Anion Gap 12 (12-20) BUN 12 (9-16) mg/dL Creatinine 0.90 (0.5-1.4) mg/dL Estim Creat Clear Calc 43.0 Estimated GFR > 60 Random Glucose 111 (60-115) mg/dL Calcium 9.3 D (8.4-10.2) mg/dL Total Bilirubin 0.4 (0.0-1.0) mg/dL Direct Bilirubin 0.2 (0.0-0.5) mg/dL AST 18 (5-31) U/L ALT 11 (0-31) U/L Alkaline Phosphatase 55 (39-117) U/L Total Protein 7.3 (6.5-8.0) g/dL Albumin 4.1 (3.5-5.0) g/dL Lipase 15 (8-78) U/L Discharge Plan Discharge Clinical Impression: Gastroenteritis Patient Disposition: Home, Self-Care Instructions: Acute Diarrhea (ED) Additional Instructions: Use Zofran as needed for nausea or vomiting Drink lots of fluids, small sips at a time Your blood work and CT scan were reassuring Your symptoms are likely related to a stomach virus You may also use [id number] Imodium to help slow down the diarrhea A diet consisting of bananas, rice, applesauce, toast may also help slow down the diarrhea Follow-up with your primary doctor Prescriptions: New ondansetron 4 mg tablet,disintegrating 4 mg PO Q8H PRN (Reason: nausea and vomiting) Qty: 20 0RF No Action ondansetron 4 mg tablet,disintegrating 4 mg PO Q8H PRN (Reason: nausea and vomiting) Qty: 20 0RF omeprazole 20 mg capsule,delayed release(DR/EC) 20 mg PO BID 14 Days Qty: 28 0RF
[2023-02-23] MEDS: iohexoL 350 MG/ML 100 ML INFUS..BTL 85 ML IV (00:51)
[2023-02-23 00:55] VITALS: BP 157/65; PULSE 67; RESP 18; TEMP 36.6; O2SAT 97
[2023-02-23] MEDS: 0.9 % Sodium Chloride 1,000 ML 999 ML IV (01:11)
[2023-02-23] MEDS: ondansetron HCL 4 MG/2 ML VIAL IVPUSH (01:12)
[2023-02-23] MEDS: Morphine Sulfate 2 MG/ML CARTRIDGE IVPUSH (01:12)
[2023-02-23 02:11] LABS: Appearance Urine Clear; Color Urine Yellow; Glucose Urine UA Negative (Negative); Leukocyte Esterase Urine Negative (Negative); Nitrite Urine Negative (Negative); Specific Gravity - Urine >= 1.030 (1.005-1.025); UMIC TRIGGER UACC YES; Urine Blood Trace (Negative); Urine Ketones Negative (Negative); Urine Protein Negative (Neg-Trace)
[2023-02-23 02:26] LABS: Bacteria Urine 1+ (None Seen); Hyaline Casts Urine 0-2 /LPF (0-2); Squamous Epithelial Cell Urine 0-2 /HPF (0-2); WBC Urine 0-5 /HPF (0-5)
== END 2023-02-23 02:05 | disposition home or self-care (01) ==
PROVIDERS: Emergency Provider Internal Medicine; PCP Internal Medicine
DX: K52.9 Noninfective gastroenteritis and colitis, unspecified (principal); R11.2 Nausea with vomiting, unspecified
CPT/HCPCS: 36415; 74177; 80048; 80076; 81001; 83690; 85025; 96374; 96375; 99284; J2270; J2405; Q9967

== ENCOUNTER 2023-04-12 23:32 | Emergency (ER) | payer MEDICARE, MEDICAID, SELFPAY ==
[2023-04-12 23:47] VITALS: BP 185/75; PULSE 83; RESP 20; TEMP 36.6; O2SAT 96; BMI 18.6
--- NOTE | 2023-04-13 00:08 | ED.GENADULT ---
HPI - General Adult General Chief complaint: General Medical Stated complaint: Eye pain/Nausea Time Seen by Provider: 04/13/23 00:08 Source: patient Mode of arrival: ambulatory Limitations: no limitations History of Present Illness HPI narrative: PATIENT WOKE UP IN THE MORNING RUBBING HER RIGHT AND WATERY DISCHARGE NO INJURY TO THE EYE WAS BOTHERING HER LITTLE BIT LAST NIGHT HAS HISTORY OF STROKE WITH LEFT-SIDED WEAKNESS FULL RECOVERY PLAVIX AND ASPIRIN NO HEADACHE NO VISION LOSS NO ANY OTHER WEAKNESS FEELS SLIGHTLY NUMBNESS OF THE LIP ON THE LEFT SIDE SPEECH IS NORMAL Related Data Previous Rx's Medication Instructions Recorded omeprazole 20 mg capsule,delayed 20 mg PO BID 2 weeks #28 caps 01/24/22 release ondansetron 4 mg disintegrating 4 mg PO Q8H PRN nausea and 01/24/22 tablet vomiting #20 tabs ondansetron 4 mg disintegrating 4 mg PO Q8H PRN nausea and 02/23/23 tablet vomiting #20 tabs loratadine 10 mg tablet (Claritin) 10 mg PO DAILY PRN allergic 04/13/23 symptoms #10 tabs olopatadine 0.2 % eye drops (Eye 1 drp ophthalmic (eye) QAM PRN 04/13/23 Allergy Itch Relief) itching #2.5 mL Allergies Allergy/AdvReac Type Severity Reaction Status Date / Time ibuprofen [From Motrin] Allergy Nausea Verified 04/12/23 23:51 Review of Systems Review of Systems: Yes all other systems are reviewed and are negative PENDING SALE TO [facility] Past Medical History Medical History (Updated 04/13/23 @ 00:52 by Kelvin Lozano MD) CVA (cerebral vascular accident) Occlusion of femoral artery Depression Asthma Social History Social History Alcohol intake: never Patient Tobacco Use Status: Former Tobacco user Smoked in Last 30 Days: No Advance Directives: No Advance Directives Information Provided: Yes Physical Exam ED Vital Signs: Vital Signs - 24 hr 04/12/23 23:47 04/13/23 00:11 04/13/23 00:14 Temperature 97.8 F Pulse Rate 83 76 78 Respiratory Rate 20 21 H Blood Pressure 185/75 H 208/90 H 202/76 H Pulse Oximetry 96 100 Oxygen Delivery Method Room Air Room Air BMI result Body Mass Index 18.6 Appearance: Alert. Oriented X3. No acute distress. Eyes: PERRLA, No Nystagmus erythema of the right palpebral and scleral conjunctiva with watery discharge anterior chamber normal IOP 12 EOMI visual field intact ENT: Pharynx normal. Oral Mucosa moist Neck: Normal inspection. Neck supple. CVS: Normal heart rate and rhythm. Pulses normal. Respiratory: No respiratory distress. Equal air entry bilateral, Abdomen: Soft and nontender. Bowel sounds are present, no mass palpable, no CVA tenderness Neuro: Oriented X 3. No motor deficit. No sensory deficit.No cerebellar signs , cranial nerves II-XII intact Eyes Visual Lange: normal visual lange by confrontation Alignment and Position: alignment normal Periorbital: periorbital findings normal Eyelids: Yes eyelids normal Corneas: fluorescein used (No abrasion) Medications Administered Discontinued Medications Generic Name Dose Route Start Last Admin Trade Name Freq PRN Reason Stop Dose Admin Fluorescein Sodium 1 strip 04/13/23 00:13 04/13/23 00:22 Fluorescein Sodium Strip EYE-RIGHT 04/13/23 00:14 1 strip ONCE ONE Administration Tetracaine HCl 1 drop 04/13/23 00:13 04/13/23 00:22 Tetracaine Hcl/Pf 0.5% Oph Meghann 4 Ml Drops EYE-RIGHT 04/13/23 00:14 1 drop ONCE ONE Administration Medical Decision Making Differential Diagnosis Differential Diagnoses: The differential diagnosis associated with the presentation includes Acute narrow angle glaucoma/conjunctivitis/coronal abrasion Discharge Plan Discharge Clinical Impression: Acute allergic conjunctivitis of right eye Patient Disposition: Home, Self-Care Instructions: Conjunctivitis (ED) Additional Instructions: You have allergic conjunctivitis to the right eye Use eye drops as prescribed untill get better Prescriptions: New olopatadine [Eye Allergy Itch Relief] 0.2 % drops 1 drp ophthalmic (eye) QAM PRN (Reason: itching) Qty: 2.5 0RF loratadine [Claritin] 10 mg tablet 10 mg PO DAILY PRN (Reason: allergic symptoms) Qty: 10 0RF No Action ondansetron 4 mg tablet,disintegrating 4 mg PO Q8H PRN (Reason: nausea and vomiting) Qty: 20 0RF omeprazole 20 mg capsule,delayed release(DR/EC) 20 mg PO BID 14 Days Qty: 28 0RF ondansetron 4 mg tablet,disintegrating 4 mg PO Q8H PRN (Reason: nausea and vomiting) Qty: 20 0RF
[2023-04-13 00:11] VITALS: BP 208/90; PULSE 76; RESP 21; O2SAT 100
[2023-04-13 00:14] VITALS: BP 202/76; PULSE 78
--- NOTE | 2023-04-13 00:23 | PC.NURSE ---
This RN assumed care at this time. Patient stating 10/10 pain, MD aware. Patient stated that she took 10mg Oxycodone at 11pm, MD aware. Flouricine and strip pulled and scanned, given to provider
== END 2023-04-13 01:01 | disposition home or self-care (01) ==
PROVIDERS: Emergency Provider Internal Medicine; PCP Internal Medicine
DX: H10.11 Acute atopic conjunctivitis, right eye (principal); Z86.73 Personal history of transient ischemic attack (TIA), and cerebral infarction without residual deficits
CPT/HCPCS: 99283; 99284

== ENCOUNTER 2024-04-20 20:07 | Emergency (ER) | payer MEDICARE, MEDICAID, SELFPAY ==
[2024-04-20 20:10] VITALS: BP 149/74; PULSE 87; RESP 18; TEMP 36.9; O2SAT 97; BMI 16.8
--- NOTE | 2024-04-20 20:12 | ED.GENADULT ---
HPI - General Adult General Chief complaint: Urogenital-Female Stated complaint: UTI Time Seen by Provider: 04/20/24 20:11 History of Present Illness ED Provider: Stanley URIBE narrative: The patient says she has had urinary discomfort for about a week and a half. It has been very bad over the last 3 days. She has a lot of discomfort with passing urine. She has urinary urgency and frequency as well. She has no flank pain. No fever. No vomiting. The patient has not been sexually active for a long time. Related Data Previous Rx's ?Medication ?Instructions ?Recorded omeprazole 20 mg capsule,delayed 20 mg PO BID 2 weeks #28 caps 01/24/22 release ondansetron 4 mg disintegrating 4 mg PO Q8H PRN nausea and 01/24/22 tablet vomiting #20 tabs ondansetron 4 mg disintegrating 4 mg PO Q8H PRN nausea and 02/23/23 tablet vomiting #20 tabs loratadine 10 mg tablet (Claritin) 10 mg PO DAILY PRN allergic 04/13/23 symptoms #10 tabs olopatadine 0.2 % eye drops (Eye 1 drp ophthalmic (eye) QAM PRN 04/13/23 Allergy Itch Relief) itching #2.5 mL nitrofurantoin 100 mg PO BID #14 caps 04/20/24 monohydrate/macrocrystals 100 mg capsule (Macrobid) phenazopyridine 200 mg tablet 200 mg PO TID PRN dysuria 6 doses 04/20/24 #6 tabs Allergies Allergy/AdvReac Type Severity Reaction Status Date / Time ibuprofen [From Motrin] Allergy Nausea Verified 04/20/24 20:12 Review of Systems Review of Systems: Yes all other systems are reviewed and are negative [facility] Past Medical History Medical History (Updated 04/21/24 @ 00:00 by Manpreet Hunter) CVA (cerebral vascular accident) Occlusion of femoral artery Depression Asthma Social History Social History Alcohol intake: never Patient Tobacco Use Status: Former Tobacco user Smoked in Last 30 Days: No Use of substances other than those prescribed or required for medical reasons: No Advance Directives: No Advance Directives Information Provided: Yes Do you have a plan to hurt others: No Plan Physical Exam ED Vital Signs: Vital Signs - 24 hr 04/20/24 22:52 Temperature 98.3 F Pulse Rate 67 Respiratory Rate 16 Blood Pressure 179/62 H Pulse Oximetry 98 Oxygen Delivery Method Room Air BMI result Body Mass Index 16.8 Const Other: The patient is awake and alert, pleasant cooperative. She does not appear toxic. HENMT Head: Yes normal to inspection Face and sinus: Yes normal facial exam Mouth: Normal oral and palatal mucosa present and moist mucous membranes Eyes General: appearance normal, both eyes and all related structures Neck Neck: Yes full ROM and Yes no lymphadenopathy Resp Effort & Inspection: normal respiratory effort Auscultation: clear to auscultation bilaterally Cardio Rate: regular rate Rhythm: regular rhythm Heart sounds: S1 normal heart sound present and S2 normal heart sound present GI Other: The abdomen is flat and soft. There is some suprapubic tenderness but otherwise the abdomen is benign. General: Yes no CVA tenderness Back/Spine/Pelvis Back: no CVA tenderness Neuro Other: the patient is awake and alert with normal mental status. Cranial nerves are grossly intact. She moves her extremities normally. She is nontoxic. Extrem Other: No peripheral edema Course Course Course Narrative: RME: done by Kiah Wilkins. Seven 3 year female history of UTI presents to ED for increased urinary frequency and dysuria. Labs ordered. Medications Administered Discontinued Medications Generic Name Dose Route Start Last Admin Trade Name Freq PRN Reason Stop Dose Admin Nitrofurantoin Macrocrystals 100 mg 04/20/24 22:36 04/20/24 22:51 Nitrofurantoin Monohyd/M-Cryst 100 Mg Capsule PO 04/20/24 22:37 100 mg ONCE ONE Administration Phenazopyridine HCl 200 mg 04/20/24 22:37 04/20/24 22:51 Phenazopyridine Hcl 200 Mg Tablet PO 04/20/24 22:38 200 mg ONCE ONE Administration Medical Decision Making Medical Decision Making MDM Narrative: the patient presents with significant complaints of dysuria. She has not had a fever or vomiting. She has no flank pain or CVA percussion tenderness. Her presentation seems consistent with cystitis without systemic manifestations. CBC and BMP are unremarkable. Urinalysis is consistent with urinary tract infection. She looks appropriate for outpatient management. She was started on Macrobid and was also given phenazopyridine for her symptoms. Lab Data 04/20/24 20:22 04/20/24 20:22 Labs: Lab Results 04/20/24 04/20/24 Range/Units 20:22 21:21 WBC 6.1 (4.8-10.8) X10*3/uL RBC 4.38 (4.20-5.50) X10*6/uL Hgb 13.8 (12.0-16.0) g/dl Hct 40.6 (37.0-47.0) % MCV 92.7 (80.0-98.0) fL MCH 31.5 (27.0-33.0) pg MCHC 34.0 (31.0-35.0) g/dl RDW 13.2 (11.0-16.0) % Plt Count 244 (160-400) X10*3/uL MPV 10.6 (9.4-12.3) fL Immature Gran % (Auto) 0.2 (0.0-0.4) % Neut % (Auto) 44.0 L (45-73) % Lymph % (Auto) 42.1 H (20-40) % [place] % (Auto) 9.3 (2-11) % Eos % (Auto) 3.1 (0-4) % Baso % (Auto) 1.3 (0-2) % Lymph # (Auto) 2.6 (1.2-4.9) X10*3/uL [place] # (Auto) 0.6 (0.1-1.2) X10*3/uL Eos # (Auto) 0.2 (0.0-0.4) X10*3/uL Baso # (Auto) 0.1 (0.0-0.2) X10*3/uL Abs Immat Gran (auto) 0.01 (0.00-0.03) X10*3/uL Absolute Neuts (auto) 2.7 (2.0-8.3) x10*3/uL Absolute Nucleated RBC 0.000 (0.0-0.012) X10*3/uL Nucleated RBC % (auto) 0.0 (0.0-0.2) /100WBC Sodium 141 (135-145) mmol/L Potassium 3.8 (3.3-5.1) mmol/L Chloride 107 (96-108) mmol/L Carbon Dioxide 25 (22-29) mmol/L Anion Gap 13 (12-20) BUN 21 H (9-16) mg/dL Creatinine 0.73 (0.5-1.4) mg/dL Estim Creat Clear Calc 48.0 Estimated GFR > 60 Random Glucose 106 (60-115) mg/dL Calcium 9.5 (8.4-10.2) mg/dL Total Bilirubin 0.3 (0.0-1.0) mg/dL AST 14 (5-31) U/L ALT 8 (0-31) U/L Alkaline Phosphatase 93 (39-117) U/L Total Protein 7.1 (6.5-8.0) g/dL Albumin 4.1 (3.5-5.0) g/dL Urine Color Yellow Urine Appearance Turbid Urine pH 5.5 (5.0-9.0) Ur Specific [place] 1.020 (1.005-1.025) Urine Protein 100 (2+) H (Neg-Trace) mg/dL Urine Glucose (UA) Negative (Negative) mg/dL Urine Ketones Negative (Negative) mg/dL Urine Blood Large (3+) H (Negative) Urine Nitrite Positive H (Negative) Ur Leukocyte Esterase Large (3+) H (Negative) Urine RBC 6-10 H (0-2) /HPF Urine WBC >50 H (0-5) /HPF Ur Squamous Epith Cells 6-10 (0-2) /HPF Urine Bacteria 2+ (None Seen) Hyaline Casts 0-2 (0-2) /LPF Discharge Plan Discharge Clinical Impression: Urinary tract infection Patient Disposition: Home, Self-Care Additional Instructions: Your testing today shows that you have a urinary tract infection. You have been started on an antibiotic called Macrobid (nitrofurantoin). Please take this 2 times a day for 7 days. Please complete the entire course. There is also a prescription for medication called phenazopyridine (commonly known as Pyridium or Azo). This medication helps ease the discomfort of urination with a urinary tract infection. This medication also turns her urine orange. Please contact your regular doctor's office tomorrow to make a follow up appointment to discuss how you are doing. For any point you develop a fever, vomiting, or pain in your back on one side, return to the emergency room for re-evaluation. Prescriptions: New nitrofurantoin monohyd/m-cryst [Macrobid] 100 mg capsule 100 mg PO BID Qty: 14 0RF Rx Instructions: must administer with a meal/food phenazopyridine 200 mg tablet 200 mg PO TID PRN (Reason: dysuria) Qty: 6 0RF No Action ondansetron 4 mg tablet,disintegrating 4 mg PO Q8H PRN (Reason: nausea and vomiting) Qty: 20 0RF omeprazole 20 mg capsule,delayed release(DR/EC) 20 mg PO BID 14 Days Qty: 28 0RF ondansetron 4 mg tablet,disintegrating 4 mg PO Q8H PRN (Reason: nausea and vomiting) Qty: 20 0RF olopatadine [Eye Allergy Itch Relief] 0.2 % drops 1 drp ophthalmic (eye) QAM PRN (Reason: itching) Qty: 2.5 0RF loratadine [Claritin] 10 mg tablet 10 mg PO DAILY PRN (Reason: allergic symptoms) Qty: 10 0RF Referrals: Rodger Teixeira III, MD [Primary Care Provider] - ([facility]) Interventions: ED Discharge Assessment Last Done: 04/20/24 22:52 Discharge Date/Time: 04/20/24 23:03 Print Language: Upper Sorbian
[2024-04-20 20:28] LABS: Basophils Absolute Auto 0.1 X10*3/uL (0.0-0.2); Basophils Percent Auto 1.3 % (0-2); Eosinophils Absolute Auto 0.2 X10*3/uL (0.0-0.4); Eosinophils Percent Auto 3.1 % (0-4); Hematocrit 40.6 % (37.0-47.0); Hemoglobin 13.8 g/dl (12.0-16.0); Imm Gran Abs Auto 0.01 X10*3/uL (0.00-0.03); Imm Gran Pct Auto 0.2 % (0.0-0.4); Lymphocytes Absolute Auto 2.6 X10*3/uL (1.2-4.9); Lymphocytes Percent Auto 42.1 % (20-40); MANUAL DIFF FLAG NO; Mean Corpuscular Hemoglobin 31.5 pg (27.0-33.0); Mean Corpuscular Volume 92.7 fL (80.0-98.0); Mean Platelet Volume 10.6 fL (9.4-12.3); Monocytes Absolute Auto 0.6 X10*3/uL (0.1-1.2); Monocytes Percent Auto 9.3 % (2-11); Neutrophils Absolute Auto 2.7 x10*3/uL (2.0-8.3); Platelet Count 244 X10*3/uL (160-400); Red Blood Count 4.38 X10*6/uL (4.20-5.50); Red Cell Distribution Width 13.2 % (11.0-16.0); White Blood Count 6.1 X10*3/uL (4.8-10.8)
[2024-04-20 20:43] LABS: Alanine Aminotransferase 8 U/L (0-31); Albumin Level 4.1 g/dL (3.5-5.0); Alkaline Phosphatase 93 U/L (39-117); Anion Gap 13 (12-20); Aspartate Amino Transferase 14 U/L (5-31); Bilirubin Total 0.3 mg/dL (0.0-1.0); Blood Urea Nitrogen 21 mg/dL (9-16); Calcium 9.5 mg/dL (8.4-10.2); Carbon Dioxide 25 mmol/L (22-29); Chloride 107 mmol/L (96-108); Estimated Glomerular Filt Rate > 60; Glucose Random 106 mg/dL (60-115); Potassium 3.8 mmol/L (3.3-5.1); Sodium 141 mmol/L (135-145); Total Protein 7.1 g/dL (6.5-8.0)
[2024-04-20 21:28] VITALS: BP 180/48; PULSE 67; RESP 16; TEMP 36.8; O2SAT 98
[2024-04-20 21:30] LABS: Appearance Urine Turbid; Color Urine Yellow; Glucose Urine UA Negative (Negative); Leukocyte Esterase Urine Large (3+) (Negative); Nitrite Urine Positive (Negative); PH 5.5 (5.0-9.0); UMIC TRIGGER UACC YES; Urine Blood Large (3+) (Negative); Urine Ketones Negative (Negative); Urine Protein 100 (2+) mg/dL (Neg-Trace)
[2024-04-20 22:50] LABS: Bacteria Urine 2+ (None Seen); Hyaline Casts Urine 0-2 /LPF (0-2); UACC Culture Trigger YES; WBC Urine >50 /HPF (0-5)
[2024-04-20] MEDS: Nitrofurantoin Monohyd/M-Cryst 100 MG CAPSULE PO (22:51)
[2024-04-20] MEDS: Phenazopyridine HCL 200 MG TABLET PO (22:51)
[2024-04-20 22:52] VITALS: BP 179/62; PULSE 67; RESP 16; TEMP 36.8; O2SAT 98
== END 2024-04-20 23:03 | disposition home or self-care (01) ==
PROVIDERS: Physician Assistant; Emergency Provider Emergency Medicine; PCP Internal Medicine
DX: N39.0 Urinary tract infection, site not specified (principal); R30.0 Dysuria; R39.15 Urgency of urination; R35.0 Frequency of micturition; Z87.891 Personal history of nicotine dependence; Z79.899 Other long term (current) drug therapy
CPT/HCPCS: 36415; 80053; 81001; 85025; 87086; 87088; 87186; 99283; 99284

== ENCOUNTER 2024-12-08 17:39 | Emergency (ER) | payer MEDICARE, MEDICAID, SELFPAY ==
--- NOTE | 2024-12-08 19:09 | PC.NURSE ---
Pt called x3 in [facility] with no answer
== END 2024-12-08 19:17 | disposition left against medical advice (07) ==
PROVIDERS: Emergency Provider Emergency Medicine; PCP Internal Medicine
DX: Z53.21 Procedure and treatment not carried out due to patient leaving prior to being seen by health care provider (principal); M79.605 Pain in left leg; R10.30 Lower abdominal pain, unspecified; R50.9 Fever, unspecified

== ENCOUNTER 2024-12-09 11:59 | Emergency (ER) | payer MEDICARE, MEDICAID, SELFPAY ==
[2024-12-09 12:05] VITALS: BP 176/74; PULSE 78; RESP 18; TEMP 36.4; O2SAT 97; BMI 16.8
--- NOTE | 2024-12-09 12:06 | ED.GENADULT ---
HPI - General Adult General Chief complaint: Urogenital-Female Stated complaint: UTI? Related Data Previous Rx's ?Medication ?Instructions ?Recorded omeprazole 20 mg capsule,delayed 20 mg PO BID 2 weeks #28 caps 01/24/22 release ondansetron 4 mg disintegrating 4 mg PO Q8H PRN nausea and 01/24/22 tablet vomiting #20 tabs ondansetron 4 mg disintegrating 4 mg PO Q8H PRN nausea and 02/23/23 tablet vomiting #20 tabs loratadine 10 mg tablet (Claritin) 10 mg PO DAILY PRN allergic 04/13/23 symptoms #10 tabs olopatadine 0.2 % eye drops (Eye 1 drp ophthalmic (eye) QAM PRN 04/13/23 Allergy Itch Relief) itching #2.5 mL nitrofurantoin 100 mg PO BID #14 caps 04/20/24 monohydrate/macrocrystals 100 mg capsule (Macrobid) phenazopyridine 200 mg tablet 200 mg PO TID PRN dysuria 6 doses 04/20/24 #6 tabs Allergies Allergy/AdvReac Type Severity Reaction Status Date / Time ibuprofen (From Motrin) Allergy Nausea Verified 12/09/24 12:07 [facility] Past Medical History Medical History (Updated 01/01/25 @ 11:07 by Rey Cervantes) CVA (cerebral vascular accident) Occlusion of femoral artery Depression Asthma Social History Social History Alcohol intake: never Patient Tobacco Use Status: Former Tobacco user Advance Directives: No Advance Directives Information Provided: Yes Physical Exam ED Vital Signs: BMI result Body Mass Index 16.8 Course Course Course Narrative: RME, this is a rapid medical exam performed by Francisco Cervantes please refer to primary provider for complete H&P- 74-year-old female presents for evaluation of fevers and UTI symptoms. Symptoms started several days ago. She reports 2 days ago she had fevers and chills. She has been treating with Tylenol. Plan for labs, urinalysis and blood cultures were ordered given the reported fevers Medical Decision Making Lab Data 12/09/24 12:40 12/09/24 12:40 Labs: Lab Results 12/09/24 12/09/24 Range/Units 12:40 12:58 WBC 4.7 L (4.8-10.8) X10*3/uL RBC 4.36 (4.20-5.50) X10*6/uL Hgb 13.8 (12.0-16.0) g/dl Hct 40.4 (37.0-47.0) % MCV 92.7 (80.0-98.0) fL MCH 31.7 (27.0-33.0) pg MCHC 34.2 (31.0-35.0) g/dl RDW 12.5 (11.0-16.0) % Plt Count 223 (160-400) X10*3/uL MPV 9.5 (9.4-12.3) fL Immature Gran % (Auto) 0.6 H (0.0-0.4) % Neut % (Auto) 70.5 (45-73) % Lymph % (Auto) 21.4 (20-40) % [place] % (Auto) 5.6 (2-11) % Eos % (Auto) 0.6 (0-4) % Baso % (Auto) 1.3 (0-2) % Lymph # (Auto) 1.0 L (1.2-4.9) X10*3/uL [place] # (Auto) 0.3 (0.1-1.2) X10*3/uL Eos # (Auto) 0.0 (0.0-0.4) X10*3/uL Baso # (Auto) 0.1 (0.0-0.2) X10*3/uL Abs Immat Gran (auto) 0.03 (0.00-0.03) X10*3/uL Absolute Neuts (auto) 3.3 (2.0-8.3) x10*3/uL Absolute Nucleated RBC 0.000 (0.0-0.012) X10*3/uL Nucleated RBC % (auto) 0.0 (0.0-0.2) /100WBC Sodium 139 (135-145) mmol/L Potassium 4.0 (3.3-5.1) mmol/L Chloride 103 (96-108) mmol/L Carbon Dioxide 26 (22-29) mmol/L Anion Gap 14 (12-20) BUN 13 (9-16) mg/dL Creatinine 0.62 (0.5-1.4) mg/dL Estim Creat Clear Calc 55.8 Estimated GFR > 60 Random Glucose 111 (60-115) mg/dL Lactic Acid 2.0 (0.5-2.0) mmol/L Calcium 9.3 (8.4-10.2) mg/dL Urine Color Yellow Urine Appearance Clear Urine pH 7.0 (5.0-9.0) Ur Specific [place] 1.010 (1.005-1.025) Urine Protein Negative (Neg-Trace) mg/dL Urine Glucose (UA) Negative (Negative) mg/dL Urine Ketones Negative (Negative) mg/dL Urine Blood Negative (Negative) Urine Nitrite Negative (Negative) Ur Leukocyte Esterase Negative (Negative) Urine RBC 0-2 (0-2) /HPF Urine WBC 0-5 (0-5) /HPF Ur Squamous Epith Cells 3-5 (0-2) /HPF Urine Bacteria None Seen (None Seen) Hyaline Casts 0-2 (0-2) /LPF Influenza Type A (PCR) NEGATIVE (Negative) Influenza Type B (PCR) NEGATIVE (Negative) RSV RNA Qual (PCR) NEGATIVE (Negative) SARS-CoV-2 RNA (RT-PCR) NEGATIVE (Negative) Discharge Plan Discharge Clinical Impression: Dysuria Patient Disposition: Left W/O Completing Treatment Prescriptions: No Action ondansetron 4 mg tablet,disintegrating 4 mg PO Q8H PRN (Reason: nausea and vomiting) Qty: 20 0RF omeprazole 20 mg capsule,delayed release(DR/EC) 20 mg PO BID 14 Days Qty: 28 0RF ondansetron 4 mg tablet,disintegrating 4 mg PO Q8H PRN (Reason: nausea and vomiting) Qty: 20 0RF nitrofurantoin monohyd/m-cryst [Macrobid] 100 mg capsule 100 mg PO BID Qty: 14 0RF Rx Instructions: must administer with a meal/food phenazopyridine 200 mg tablet 200 mg PO TID PRN (Reason: dysuria) Qty: 6 0RF olopatadine [Eye Allergy Itch Relief] 0.2 % drops 1 drp ophthalmic (eye) QAM PRN (Reason: itching) Qty: 2.5 0RF loratadine [Claritin] 10 mg tablet 10 mg PO DAILY PRN (Reason: allergic symptoms) Qty: 10 0RF Discharge Date/Time: 12/09/24 17:37
[2024-12-09 12:48] LABS: MANUAL DIFF FLAG NO
[2024-12-09 12:51] LABS: Basophils Absolute Auto 0.1 X10*3/uL (0.0-0.2); Basophils Percent Auto 1.3 % (0-2); Eosinophils Percent Auto 0.6 % (0-4); Hematocrit 40.4 % (37.0-47.0); Hemoglobin 13.8 g/dl (12.0-16.0); Imm Gran Abs Auto 0.03 X10*3/uL (0.00-0.03); Imm Gran Pct Auto 0.6 % (0.0-0.4); Lymphocytes Percent Auto 21.4 % (20-40); Mean Corpuscular HGB Conc 34.2 g/dl (31.0-35.0); Mean Corpuscular Hemoglobin 31.7 pg (27.0-33.0); Mean Corpuscular Volume 92.7 fL (80.0-98.0); Mean Platelet Volume 9.5 fL (9.4-12.3); Monocytes Absolute Auto 0.3 X10*3/uL (0.1-1.2); Monocytes Percent Auto 5.6 % (2-11); Neutrophils Absolute Auto 3.3 x10*3/uL (2.0-8.3); Neutrophils Percent Auto 70.5 % (45-73); Platelet Count 223 X10*3/uL (160-400); Red Blood Count 4.36 X10*6/uL (4.20-5.50); Red Cell Distribution Width 12.5 % (11.0-16.0); White Blood Count 4.7 X10*3/uL (4.8-10.8)
[2024-12-09 13:01] LABS: Anion Gap 14 (12-20); Blood Urea Nitrogen 13 mg/dL (9-16); Calcium 9.3 mg/dL (8.4-10.2); Carbon Dioxide 26 mmol/L (22-29); Chloride 103 mmol/L (96-108); Creatinine Clr Calc Pharmacy 55.8; Estimated Glomerular Filt Rate > 60; Glucose Random 111 mg/dL (60-115); Sodium 139 mmol/L (135-145)
[2024-12-09 13:17] LABS: Appearance Urine Clear; Color Urine Yellow; Glucose Urine UA Negative (Negative); Leukocyte Esterase Urine Negative (Negative); Nitrite Urine Negative (Negative); Urine Blood Negative (Negative); Urine Ketones Negative (Negative); Urine Protein Negative (Neg-Trace)
[2024-12-09 13:19] LABS: Bacteria Urine None Seen (None Seen); Hyaline Casts Urine 0-2 /LPF (0-2); RBC Urine 0-2 /HPF (0-2); WBC Urine 0-5 /HPF (0-5)
[2024-12-09 13:30] LABS: Influenza A PCR NEGATIVE (Negative); Influenza B PCR NEGATIVE (Negative); Resp Syncy Virus RNA Qual PCR NEGATIVE (Negative); SARS COV2 PCR INHOUSE NEGATIVE (Negative)
--- OUTSIDE RECORDS SUMMARY | 2024-12-09 14:20 | XMS_ITS | Clinical Summary ---
Author Organization [facility] Address [address] [place] [address] Care Team Providers Care Gluing Machine Adjuster Name Role Phone Unavailable Primary Care Provider Unavailabl e Source Comments PLEASE NOTE, if this patient is a minor, it may be UNLAWFUL to discuss sensitive information that is contained in these records (such as FAMILY PLANNING, MENTAL HEALTH or SUBSTANCE ABUSE) with the minor patient's parent or other person without the patient's specific authorization.[facility] Immunizations Immunization Administration Dates Next Due Moderna COVID-19 Vaccine, re d cap blue label, 12+ Primary Series 11/08/2020,10/09/2020 Social History Tobacco Use Types Packs/Day Years Used Date Smoking Tobacco: Never Assessed Social Connections Answer Date Recorded Social Connections and Isolation 0 10/09/2020 Financial Resource Strain Answer Date R ecorded Financial Resource Strain 0 2020 Stress Answer Date Recorded Stress 0 10/09/2020 Physical Activity Answer Date Recorded Physical Activity 0 10/09/2020 Food Insecurity Answer Date Recorded Food 0 10/09/2020 Transportation Needs Answer Date Record ed Transportation 0 10/09/2020 Housing Stability Answer Date Recorded Housing 0 10/09/2020 Safety and Environment Answer Date Giorgio rded Safety 0 10/09/2020 Utilities Answer Date Recorded Utilities 0 10/09/2020 Employment Answer Date Recorded Employment 0 10/09/2020 Comments Unknown Sex and Gender Information Value Date Recorded Sex Assigned at Not on file Legal Sex Female 11:36 AM PDT Gender Identity Not on file Sexual Orientation Not on file Plan of Treatment Health Maintenance Due Date Last Done Comments Hepatitis C Screening 1950 Tobacco Screening 1950 Hypertension Screening (#1) 1970 Medicare Annual Wellness Visit 1970 Imm-DTaP/Tdap/Td (1 - Tdap) 1971 CT Colonography 1997 Colonoscopy 1997 Colorectal Cancer Screening 1997 FIT/gFOBT 1997 Fecal DNA 1997 Flexible Sigmoidoscopy 1997 Imm-Zoster, Recombinant (1 of 2) 2002 Bone Density Screening 2017 Falls Prevention 2017 Breast Cancer Screening (Mammogram) 08/06/2022 08/06/2020 [id number] (3 - season) 2024 021, 10/09/2020 Imm-Influenza (#1) 2024 05/06/2020, 1 , 04/09/2018, Additional history exists Imm-Pneumococcal 65+ (3 of 3 - PCV20 or PCV21) 03/13/2024 03/13/2019, 08/31/2011 Alcohol and Drug Screen 07/09/2024 Depression Annual Screen 07/09/2024 Lipid Screening 12/21/2025 12/21/2020 Insurance [facility] [place]
--- NOTE | 2024-12-09 17:35 | PC.NURSE ---
No answer at 17:35. Called multiple times from waiting room. Left without completing treatment.
== END 2024-12-09 17:37 | disposition left against medical advice (07) ==
PROVIDERS: Physician Assistant; Emergency Provider Emergency Medicine; PCP Internal Medicine
DX: R30.0 Dysuria (principal); R50.9 Fever, unspecified; Z03.818 Encounter for observation for suspected exposure to other biological agents ruled out; J45.909 Unspecified asthma, uncomplicated
CPT/HCPCS: 0241U; 36415; 80048; 81001; 83605; 85025; 87040; 99282; 99283

== ENCOUNTER 2025-03-11 14:59 | Emergency (ER) | payer MEDICARE, MEDICAID, SELFPAY ==
--- NOTE | ~2025-03-11 | XR_ITS ---
EXAMINATION: XR CHEST CLINICAL INFORMATION: cough fevers copd COMPARISON: None available. TECHNIQUE: 2 views of the chest were obtained. FINDINGS: Hyperinflated lungs. No consolidation, pleural effusion or pneumothorax. Cardiomediastinal silhouette size is normal. Calcified plaque thoracic aortic arch. Multilevel thoracic and upper lumbar stenosis. Osteopenia versus osteoporosis. Metallic hardware lower cervical spine no fully included in the [id number]. XR/XR chest 2V IMPRESSION: Hyperinflated lungs without acute airspace disease. Multilevel spondylosis. Electronically signed by: Miguel Angel Vallejo MD 03/11/2025 03:44 PM EDT
[2025-03-11 15:23] VITALS: BP 167/78; PULSE 97; RESP 24; TEMP 36.7; O2SAT 97; BMI 16.5
--- NOTE | 2025-03-11 15:23 | ED_ITS ---
HPI - General Adult General Chief complaint: Upper Respiratory Symptoms Stated complaint: fever, cough, copd Time Seen by Provider: 03/11/25 18:35 Source: patient, RN notes reviewed and old records reviewed Mode of arrival: ambulatory Limitations: no limitations History of Present Illness ED Provider: Helen URIBE narrative: 74-year-old female with a past medical history significant for COPD not on chronic oxygen presents for evaluation of increased cough, shortness of breath and sneezing. She reports worsening symptoms over the last 5 days. She reports that she had a fever at home this morning of 102. She reports increase in sputum production. She has been using her home inhalers as prescribed. Denies any sick contacts recent travel, leg swelling. She has no other complaints or concerns at this time Related Data Previous Rx's ?Medication ?Instructions ?Recorded omeprazole 20 mg capsule,delayed 20 mg PO BID 2 weeks #28 caps 01/24/22 release ondansetron 4 mg disintegrating 4 mg PO Q8H PRN nausea and 01/24/22 tablet vomiting #20 tabs ondansetron 4 mg disintegrating 4 mg PO Q8H PRN nausea and 02/23/23 tablet vomiting #20 tabs loratadine 10 mg tablet (Claritin) 10 mg PO DAILY PRN allergic 04/13/23 symptoms #10 tabs olopatadine 0.2 % eye drops (Eye 1 drp ophthalmic (eye ) QAM PRN 04/13/23 Allergy Itch Relief) itching #2.5 mL nitrofurantoin 100 mg PO BID #14 caps 04/20 monohydrate/macrocrystals 100 mg capsule (Macrobid) phenazopyridine 200 mg tablet 200 mg PO TID PRN dysuri a 6 doses 04/20/24 #6 tabs azithromycin 250 mg tablet See Rx Instructions PO .COM PLEX #6 03/11/25 tabs prednisone 20 mg tablet 40 mg (2 x 20 mg) PO DAILY # 8 tabs 03/11/25 Allergies Allergy/AdvReac Type Severity Reaction Status Date / Time ibuprofen (From Motrin) Allergy Nausea Verified 03/11/25 15:27 Review of Systems 2 Constitutional: Constitutional: Reports body ache(s), Reports chills, Reports fever(s), Reports malaise and Reports weakness Eyes: Eyes: Denies blurry vision ENT: Denies vertigo and Denies dizziness Cardiovascular: Cardiovascular: Denies chest pain, Reports dyspnea and Reports dyspnea on exertion Respiratory: Respiratory: Reports cough, Reports excessive phlegm production, Reports pain with cough, Reports dyspnea, Reports dyspnea on exertion and Reports wheezing Gastrointestinal: Gastrointestinal: Denies abdominal pain, Denies nausea and Denies vomiting Musculoskeletal: Musculoskeletal: Denies back pain Integumentary/Breasts: Skin/Breast: Denies rash Neurologic: Denies vertigo, Denies dizziness and Reports weakness Allergic/Immunologic: Allergic/Immunologic: Reports wheezing PMFSH Past Medical History Medical History (Updated 03/11/25 @ 20:01 by Rey Cervantes) CVA (cerebral vascular accident) Occlusion of femoral artery Depression Asthma Social History Social History Unable to assess alcohol history related to: Unknown Alcohol intake: never Patient Tobacco Use Status: Former Tobacco user Advance Directives: No Advance Directives Information Provided: Yes Physical Exam ED Vital Signs: Vital Signs - 24 hr 03/11/25 15:23 03/11/25 17:43 03/11/25 17:43 Temperature 98.0 F 98.2 F Pulse Rate 97 72 Respiratory Rate 24 H 18 Blood Pressure 167/78 H 154/60 H Pulse Oximetry 97 95 Oxygen Delivery Method Room Air Room Air Room Air BMI result Body Mass Index 16.5 Const General: healthy appearing, comfortable, no acute distress, alert and awake Nutritional Appearance: well nourished Orientation/consciousness: patient oriented x3 HENMT Head: Yes normocephalic and Yes atraumatic Eyes Eyelids: Yes eyelids normal Conjunctivae: conjunctivae normal Sclerae: sclerae normal Corneas: corneas normal Pupils: Equal, round and reactive pupils present EOM: EOMs intact bilaterally Neck Neck: Yes full ROM Resp Other: mild, diffuse expiratory wheeze, no stridor or crackles Effort & Inspection: normal respiratory effort, able to speak in complete sentences and not labored Cardio Rate: regular rate Rhythm: regular rhythm GI Inspection: No distended Palpation (GI): Soft to palpation, not firm, nontender, no guarding and not rigid Skin General skin exam: elasticity normal Neuro General: patient oriented x3 Cranial nerves: Yes Equal, round and reactive pupils present and Yes Bilaterally intact EOM present Cognition (Neuro): normal cognition Extrem Other: Moving all extremities well without any obvious deformities Course Course Course Narrative: This is a Rapid Medical Examination (RME) performed by Beatriz Poole PA-C in triage. Full HPI, ROS, assessment and treatment plan per primary provider in the Main ED. Hx: 74 yo F hx COPD/asthma, CVA, depression here for eval of sneezing, dry cough, fevers x2 days. 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 not on home O2. PE/vitals: satting 95% on RA. bronchospastic cough, faint wheezes. Plan: labs, cxr, viral swabs Medications Administered Discontinued Medications Generic Name Dose Route Start Last Admin Trade Name Freq PRN Reason Stop Dose Admin Magnesium Sulfate/Dextrose 1 gm in 100 mls @ 300 mls/hr 03/11/25 19:28 03/11/25 19:50 Magnesium Sulfate/D5w IV 03/11/25 19:47 300 mls/hr ONCE ONE Administration Methylprednisolone Sodium Succinate 125 mg 03/11/25 19:28 03/11/25 19:50 Methylprednisolone Sod Succ 125 Mg/2 Ml Vial IVPUSH 03/11/25 19:29 125 mg ONCE ONE Administration Medical Decision Making Medical Decision Making [facility] Narrative: 74-year-old female with a past medical history significant for COPD presents for evaluation of increased cough, shortness of breath and sputum production. She reports fevers at home as high as 102. This was not reproduced in the emergency department, she has been afebrile. She has no leukocytosis. Her vital signs are reassuring. She was somewhat tachypneic on arrival with a 24 but this improved before there was any intervention. She is not hypotensive or tachycardic. I have a low suspicion for PE. Her history exam is most consistent with an infectious cause, likely viral. Chest x-ray is negative for pneumonia or pleural effusions. We will treat with a DuoNeb, steroids and magnesium. Given the patient is not hypoxic or septic appearing, anticipate discharge once treatment as complete. she is negative for influenza, COVID-19, RSV Differential Diagnosis Differential Diagnoses: The differential diagnosis associated with the presentation includes COPD Bronchitis Upper respiratory infection Viral syndrome Pneumonia Admission/Observation Consideration of admission/observation: Escalation of care including admission/observation considered the patient ultimately stable for discharge as she is not septic or hypoxic Lab Data [facility] Lab Attestation statement: I reviewed the patient's lab results. no leukocytosis or anemia. Normal platelet count. No significant electrolyte abnormalities warranting intervention. 03/11/25 16:24 03/11/25 16:24 Labs: Lab Results 03/11/25 Range/Units 16:24 WBC 5.5 (4.8-10.8) X10*3/uL RBC 4.71 (4.20-5.50) X10*6/uL Hgb 14.8 (12.0-16.0) g/dl Hct 42.4 (37.0-47.0) % MCV 90.0 (80.0-98.0) fL MCH 31.4 (27.0-33.0) pg MCHC 34.9 (31.0-35.0) g/dl RDW 12.4 (11.0-16.0) % Plt Count 242 (160-400) X10*3/uL MPV 9.8 (9.4-12.3) fL Immature Gran % (Auto) 0.2 (0.0-0.4) % Neut % (Auto) 42.5 L (45-73) % Lymph % (Auto) 47.6 H (20-40) % [place] % (Auto) 6.5 (2-11) % Eos % (Auto) 1.4 (0-4) % Baso % (Auto) 1.8 (0-2) % Lymph # (Auto) 2.6 (1.2-4.9) X10*3/uL [place] # (Auto) 0.4 (0.1-1.2) X10*3/uL Eos # (Auto) 0.1 (0.0-0.4) X10*3/uL Baso # (Auto) 0.1 (0.0-0.2) X10*3/uL Abs Immat Gran (auto) 0.01 (0.00-0.03) X10*3/uL Absolute Neuts (auto) 2.4 (2.0-8.3) x10*3/uL Absolute Nucleated RBC 0.000 (0.0-0.012) X10*3/uL Nucleated RBC % (auto) 0.0 (0.0-0.2) /100WBC Sodium 139 (135-145) mmol/L Potassium 4.0 (3.3-5.1) mmol/L Chloride 106 (96-108) mmol/L Carbon Dioxide 25 (22-29) mmol/L Anion Gap 12 (12-20) BUN 13 (9-16) mg/dL Creatinine 0.69 (0.5-1.4) mg/dL Estim Creat Clear Calc 49.0 Estimated GFR > 60 Random Glucose 98 (60-115) mg/dL Calcium 9.3 (8.4-10.2) mg/dL Magnesium 2.4 (1.6-2.6) mg/dL Total Bilirubin 0.4 (0.0-1.0) mg/dL AST 27 (5-31) U/L ALT 14 (0-31) U/L Alkaline Phosphatase 63 (39-117) U/L Total Protein 7.1 (6.5-8.0) g/dL Albumin 4.4 (3.5-5.0) g/dL COVID-19 (DEBBIE) Negative (Negative) COVID-19 Clin Com See Note Influenza Type A (JENS) Negative (Negative) Influenza Type B (JENS) Negative (Negative) Influenza A & B Note See Note Independent Interpretation I performed an independent interpretation of an: Plain X-Ray Interpretation: agree with Radiology interpretation Radiology Impression Discussion of test interpretation with radiology: I have reviewed the radiologist's reading. Radiologist Impression: FINDINGS: Hyperinflated lungs. No consolidation, pleural effusion or pneumothorax. Cardiomediastinal silhouette size is normal. Calcified plaque thoracic aortic arch. Multilevel thoracic and upper lumbar stenosis. Osteopenia versus osteoporosis. Metallic hardware lower cervical spine no fully included in the [id number]. XR/XR chest 2V IMPRESSION: Hyperinflated lungs without acute airspace disease. Multilevel spondylosis. Electronically signed by: Miguel Angel Vallejo MD 03/11/2025 03:44 PM EDT Discharge Plan Discharge Clinical Impression: Asthma exacerbation in COPD Patient Disposition: Home, Self-Care Instructions: COPD (Chronic Obstructive Pulmonary Disease) (ED) Additional Instructions: Your work up in the emergency department was reassuring. I recommend taking prednisone and azithromycin as prescribed Follow up with your primary doctor, return for new or worsening symptoms Prescriptions: New azithromycin 250 mg tablet See Rx Instructions .ROUTE .COMPLEX Qty: 6 0RF Rx Instructions: For 250 mg dose pack: take 500 mg today (day 1), then 250 mg for 4 days (days 2-5) prednisone 20 mg tablet 40 mg PO DAILY Qty: 8 0RF No Action ondansetron 4 mg tablet,disintegrating 4 mg PO Q8H PRN (Reason: nausea and vomiting) Qty: 20 0RF omeprazole 20 mg capsule,delayed release(DR/EC) 20 mg PO BID 14 Days Qty: 28 0RF ondansetron 4 mg tablet,disintegrating 4 mg PO Q8H PRN (Reason: nausea and vomiting) Qty: 20 0RF nitrofurantoin monohyd/m-cryst [Macrobid] 100 mg capsule 100 mg PO BID Qty: 14 0RF Rx Instructions: must administer with a meal/food phenazopyridine 200 mg tablet 200 mg PO TID PRN (Reason: dysuria) Qty: 6 0RF olopatadine [Eye Allergy Itch Relief] 0.2 % drops 1 drp ophthalmic (eye) QAM PRN (Reason: itching) Qty: 2.5 0RF loratadine [Claritin] 10 mg tablet 10 mg PO DAILY PRN (Reason: allergic symptoms) Qty: 10 0RF Print Language: Belarusian
[2025-03-11 16:35] LABS: MANUAL DIFF FLAG NO
[2025-03-11 16:37] LABS: Hematocrit 42.4 % (37.0-47.0); Hemoglobin 14.8 g/dl (12.0-16.0); Imm Gran Abs Auto 0.01 X10*3/uL (0.00-0.03); Imm Gran Pct Auto 0.2 % (0.0-0.4); Lymphocytes Absolute Auto 2.6 X10*3/uL (1.2-4.9); Mean Corpuscular HGB Conc 34.9 g/dl (31.0-35.0); Mean Corpuscular Hemoglobin 31.4 pg (27.0-33.0); Mean Corpuscular Volume 90.0 fL (80.0-98.0); NRBC Abs Auto 0.000 X10*3/uL (0.0-0.012); NRBC Pct Auto 0.0 /100WBC (0.0-0.2); Platelet Count 242 X10*3/uL (160-400); Red Blood Count 4.71 X10*6/uL (4.20-5.50); White Blood Count 5.5 X10*3/uL (4.8-10.8)
[2025-03-11 16:53] LABS: Alanine Aminotransferase 14 U/L (0-31); Albumin Level 4.4 g/dL (3.5-5.0); Alkaline Phosphatase 63 U/L (39-117); Anion Gap 12 (12-20); Aspartate Amino Transferase 27 U/L (5-31); Blood Urea Nitrogen 13 mg/dL (9-16); Calcium 9.3 mg/dL (8.4-10.2); Carbon Dioxide 25 mmol/L (22-29); Chloride 106 mmol/L (96-108); Creatinine Clr Calc Pharmacy 49.0; Estimated Glomerular Filt Rate > 60; Magnesium 2.4 mg/dL (1.6-2.6); Potassium 4.0 mmol/L (3.3-5.1); Sodium 139 mmol/L (135-145); Total Protein 7.1 g/dL (6.5-8.0)
[2025-03-11 17:05] LABS: COVID-19 Test Negative (Negative); IDNOW Serial# 55D5AD1C
[2025-03-11 17:06] LABS: IDNOW Serial# 58CA691E; Influenza B2 Negative (Negative)
[2025-03-11 17:43] VITALS: BP 154/60; PULSE 72; RESP 18; TEMP 36.8; O2SAT 95
--- OUTSIDE RECORDS SUMMARY | 2025-03-11 18:28 | XMS_ITS ---
Author Organization [address] Address [address] [place] [address] Phone Care Team Providers Care Grid Maker Name Role Phone Rodger Teixeira MD Primary Care Provider [phone] High Risk Care Management Status:Ongoing (Active) Start date:02/17/2025 Enrollment date:02/27/2025 Case Team Name Relationship Phone Peace Davis RN Care Manager(Responsible S taff) Continued Care and Services Coordination
--- OUTSIDE RECORDS SUMMARY | 2025-03-11 18:28 | XMS_ITS ---
Author Organization [facility] [address] [facility] Address [address] [place], [place] Phone Care Team Providers Care Third Shift Lieutenant Name Role Phone Rodger Teixeira MD Primary Care Provider [phone] [facility] - Transportation Status:Ongoing (Active) Start date:03/05/2025 Enrollment date:03/05/2025 Enrollment reason:Referred by Care Team Related social drivers of health:Transportation Related program episode:Community Health Worker Program (Active) Overview Community Health Worker Program - Transportation Service Episode Case Team Name Relationship Phone Bernard Vázquez Community Health Worker(Responsi ble Staff) Continued Care and Services Coordination
--- OUTSIDE RECORDS SUMMARY | 2025-03-11 18:28 | XMS_ITS ---
Author Organization [facility] [address] [place] [address] [address] [place] [address] Phone Care Team Providers Care Transportation Sales Consultant Name Role Phone Rodger Teixeira MD Primary Care Provider [phone] Community Health Worker Program Status:Ongoing (Active) Start date:03/03/2025 Enrollment date:03/05/2025 Enrollment reason:Referred from clinic Current support & services provided:Adult Related service episodes:[facility] - Housing (Active), [facility] - Transportation (Active) Overview Community Health Worker Program Case Team Name Relationship Phone Bernard Vázquez Community Health Worker(Responsi ble Staff) Continued Care and Services Coordination
--- OUTSIDE RECORDS SUMMARY | 2025-03-11 18:28 | XMS_ITS ---
Author Organization [facility] [address] [place] [address] Address [address] [place], [place] Phone Care Team Providers Care Electrical Designer Drafter Name Role Phone Rodger Teixeira MD Primary Care Provider [phone] [facility] - Housing Status:Ongoing (Active) Start date:03/05/2025 Enrollment date:03/05/2025 Enrollment reason:Referred by Care Team Related social drivers of health:Housing Instability Related program episode:Community Health Worker Program (Active) Overview Housing service of Community Health Worker Program Case Team Name Relationship Phone Bernard Vázquez Community Health Worker(Responsi ble Staff) Continued Care and Services Coordination
--- OUTSIDE RECORDS SUMMARY | 2025-03-11 18:29 | XMS_ITS | Clinical Summary ---
Author Organization [facility] Address [address] [place] [address] Care Team Providers Care Telecommunications Analyst Name Role Phone Rodger Teixeira MD Primary Care Provider [phone] Allergies No known active allergies Medications Medication Sig Dispensed Refills Start Date End Date Status albuterol (PROVENTIL) (2.5 MG/3ML) 0.083% nebulizer solution Take 2.5 mg by nebulization every 6 (six) hours as needed for wheezing. 0 Active aspirin EC 81 MG tablet Take 81 mg by mouth daily. 0 Active budesonide-formotero l (Symbicort) 160-4.5 MCG/ACT inhaler Inhale 2 inhalations into the lungs 2 (two) times a day. 0 Active montelukast (SINGULAIR) 10 MG tablet Take 10 mg by mouth every night at bedtime. 0 Active amLODIPine (NORVASC) tablet 5 mg Take 5 mg by mouth daily. 0 Active DULoxetine (CYMBALTA) DR capsule 30 mg Take 30 mg by mouth daily. 0 Active hydroCHLOROthiazide (HYDRODIURIL) tablet 25 mg Take 25 mg by mouth daily. 0 Active oxyCODONE-acetaminop hen (PERCOCET) 10-325 MG per tablet Take 1 tablet by mouth every 6 (six) hours as needed for pain. 0 Active mirtazapine (REMERON) 7.5 MG tablet Take 7.5 mg by mouth every night at bedtime. 0 Active Tiotropium [place] Monohydrate (SPIRIVA HANDIHALER IN) Inhale into the lungs. 0 Active clopidogrel (PLAVIX) 75 MG tablet Take 75 mg by mouth daily. 0 Active pancrelipase, Ylh-Fceg-Vgji, (Creon) [address]74[address] units CPEP Take 1 capsule (24,000 units of lipase total) by mouth 3 (three) times a day with meals. 0 Active megestrol (MEGACE) suspension 40 mg/mL TAKE 20 ML EVERY DAY 480 mL 3 12/22/2022 Active Active Problems Problem Noted Date Diagnosed Date Abnormal weight loss 10/20/2021 Social History Tobacco Use Types Packs/Day Years Used Date Smoking Tobacco: Never Assessed Sex and Gender Information Value Date Recorded Sex Assigned at Not on file Gender Identity Not on file Sexual Orientation Not on file Job Start Date Occupation Industry Not on file Not on file Not on file Last Filed Vital Signs Vital Sign Reading Time Taken Comments Blood Pressure 151/59 06/19/2022 11:17 AM EST Pulse 71 06/19/2022 11:17 AM EST Temperature 36.5 C (97.7 F) 06/19/2022 11:17 AM EST Respiratory Rate - - Oxygen Saturation 100% 06/19/2022 11:17 AM EST Inhaled Oxygen Concentration - - Weight 47 kg (103 lb 9.6 oz) 06/19/2022 11:17 AM EST Height 157.5 cm (5' 2 ) 06/19/2022 11:17 AM EST Body Mass Index 18.95 06/19/2022 11:17 AM EST Plan of Treatment Health Maintenance Due Date Last Done Comments Hepatitis C Screening 1950 COVID-19 Vaccine (#1) 03/03/1951 Depression Screening 1964 Preventative Health Evaluation 1970 DTap / Tdap / Td (1 - Tdap) 1971 Colon Cancer Screening (Colonoscopy) 1997 Breast Cancer Screening (Mammogram) 2002 Shingrix-Zoster Vaccine (1 of 2) 2002 Fall Risk Assessment 2017 Osteoporosis Screening (DEXA Scan) 2017 Pneumococcal Vaccine (3 of 3 - PPSV23 or PCV20) 03/13/2024 03/13/2019, 08/31/2011, 11/26/2006 Influenza Vaccine (#1) 2025 2, 04/25/2021, 05/06/2020, Additional history exists RSV Adult > 60+ Yrs or (1 - 1-dose 75+ series) 2027 Hepatitis B Vaccines Aged Out No long er eligible based on patient's age to complete this topic RSV Ped < 20 months Aged Out No longe r eligible based on patient's age to complete this topic Care Teams Telecommunications Analyst Relationship Specialty Start Date End Date Rodger Teixeira MD PCP - General Internal Medicine 03/05/19
--- OUTSIDE RECORDS SUMMARY | 2025-03-11 18:29 | XMS_ITS | Clinical Summary ---
Author Organization [facility] Address [address] [place] [address] Care Team Providers Care Lamp Stack Developer Name Role Phone Unavailable Primary Care Provider [...] 2017 Breast Cancer Screening (Mammogram) 08/06/2022 08/06/2020 [id number] (3 - 2023- season) 2024 021, 10/09/2020 Imm-Pneumococcal 50+ (3 of 3 - PCV20 or PCV21) 03/13/2024 03/13/2019, 08/31/2011 Alcohol and Drug Screen 07/09/2024 Depression Annual Screen 07/09/2024 Imm-Influenza (#1) 2025 05/06/2020, 1 , 04/09/2018, Additional history exists Lipid Screening 12/21/2025 12/21/2020 Formerly [facility] [place]
--- OUTSIDE RECORDS SUMMARY | 2025-03-11 18:29 | XMS_ITS ---
Author Name [facility] Organization Unknown Care Team Organization Name Specialty Phone Email Start Date End Da te [facility] 02/25/2025 [facility] NEISHA CINDY Primary Care 05/16/2022
--- OUTSIDE RECORDS SUMMARY | 2025-03-11 18:29 | XMS_ITS | Encounter Summary ---
Author Organization [facility] Address [address] [place] [address] Care Team Providers Care Vamp Wetter Name Role Phone Rodger Teixeira MD Primary Care Provider [phone] Encounter Details Date Type Department Care Team (Late st Contact Info) Description 03/03/2025 Referral Triage [facility] Health Worker [address] [address] Bishop Parkinson Social History Tobacco Use Types Packs/Day Years Used Date Smoking Tobacco: Former Cigarettes Q uit: 03/15/2018 Smokeless Tobacco: Never Alcohol Use Standard Drinks/Week Comments No 0 (1 standard drink = 0.6 oz pur e alcohol) Housing Instability Answer Date Recorde d Are you worried that in the next 2 months you may not have stable housing? Yes 03/05/2025 Food Access & Nutrition Answer Date Rec orded Do you have access to a vari ety of food including fruits and vegetables? Yes 03/05/2025 Access to Healthcare Answer Date Record ed Within the last 3 months, ho w many times did you visit the emergency department for your medical care? 2 03/05/2025 Health Literacy Answer Date Recorded How often do you need to hav e someone help you when you read instructions, pamphlets, or other written material from your doctor or pharmacy? Never 03/05/2025 Caregiver: How often do you need to have someone help you when you read instructions, pamphlets, or other written material from your doctor or pharmacy? Not on file 03/05/2025 Financial Risk Answer Date Recorded How hard is it for you to pa y for the very basics like food, housing, medical care, and air conditioning / heating? Not very hard 03/05/2025 Transportation Answer Date Recorded Has the lack of transportati on kept you from meetings, work, or from getting things needed for daily living? Yes Has the lack of transportati on kept you from medical appointments or from getting medications? Yes 03/05/2025 Social Isolation Answer Date Recorded How often do you feel lonely or isolated from th ose around you? Never 03/05/2025 Food Risk Answer Date Recorded Within the past 12 months we worried whether our food would run out before we got money to buy more. Never true 03/05/2025 Within the past 12 months th e food we bought just didn't last and we didn't have money to get more. Never true 03/05/2025 Dependent Care Answer Date Recorded Do you need help finding or paying for care for your loved ones. For example, early childhood educator aide or elderly care for an older adult? No 03/05/2025 Education Answer Date Recorded Do you think completing more education or training, like finishing a GED, going to college, or learning a trade, would be helpful for you? No 03/05/2025 Employment and Income Answer Date Recor ded During the last four weeks, have you been actively looking for work? No 03/05/2025 Living Situation Answer Date Recorded What is your living situation? 0 03/05/2025 Interpersonal Safety Answer Date Record ed Physical Abuse 08/20/2024 Verbal Abuse 08/20/2024 Comments No Sex and Gender Information Value Date Recorded Sex Assigned at Female 08/14/2024 3:27 PM EST Legal Sex Female 12:43 AM EST Gender Identity Female 08/14/2024 3:27 PM EST Sexual Orientation Straight 08/20/2024 1 :43 PM EST documented as of this encounter Progress Notes * Bishop Parkinson - 03/03/2025 10:12 AM EDT Priority: Routine Referral triage: Assigned to Edward (CHW) Reason for referral: housing Bishop Parkinson Community Health Worker (CHW) Brimming Machine Operator/Regional documented in this encounter Plan of Treatment Upcoming Encounters Date Type Department Care Team (Late st Contact Info) Description 03/30/2025 8:15 AM EDT Hospital Encounter [facility] Endoscopy [address] [place] [address] Pedro Marshall MD [address] [place] [address] 05/21/2025 3:00 PM EST Office Visit Adult Medicine [address] [phone] Rodger Teixeira MD [address] [place] [address] documented as of this encounter Visit Diagnoses Not on filedocumented in this encounter Care Teams Vamp Wetter Relationship Specialty Start Date End Date Rodger Teixeira MD [address] [place] [address] PCP - General Internal Medicine 12/27/12 documented as of this encounter
--- OUTSIDE RECORDS SUMMARY | 2025-03-11 18:29 | XMS_ITS | Clinical Summary ---
Author Organization [facility] [address] [place] [address] Address [address] [place], [place] Phone Care Team Providers Care Invoice Coder Name Role Phone Rodger Teixeira MD Primary Care Provider [phone] Allergies Active Allergy Reactions Criticality Noted Date Comments Ibuprofen GI intolerance,Nausea And Vomiting 0 09/24/2013 Medications ipratropium-al buteroL (Combivent Respimat) 20-100 mcg/actuation inhaler INHALE 1 PUFF INTO THE LUNGS EVERY 6 HOURS NEEDED FOR COUGH OR SHORTNESS OF BREATH 4 Active atorvastatin (LIPITOR) 80 mg tablet Take 1 Tablet by mouth at bedtime. 4 Active UNABLE TO FIND Misc. Devices (Pulse Oximeter For Finger) Misc, 1 Each by Does not apply route as needed for Other. DHARMESH-99 Pulse oximeter To Check Oxygen saturation as needed 4 Active dicyclomine (BENTYL) 20 mg tablet 4 times daily. 3 Active tiotropium (Spiriva Respimat) 2.5 mcg/actuation inhalation spray INHALE 2 PUFFS BY MOUTH DAILY,X30 DAYS 3 Active ondansetron (ZOFRAN) 4 mg tablet Take 1 tablet (4 mg total) by mouth every 8 (eight) hours if needed for nausea. 3 Active montelukast (SINGULAIR) 10 mg tablet Take 1 tablet (10 mg total) by mouth at bedtime. 1 Active clopidogreL (PLAVIX) 75 mg tablet Take 1 tablet (75 mg total) by mouth 1 (one) time each day. 0 Active UNABLE TO FIND CPAP Historical (HISTORICAL CPAP), Inhale into the lungs. Active albuterol sulfate (ProAir RespiClick) 90 mcg/actuation aerosol powdr breath activated Inhale 2 Puffs into the lungs every 4 hours. Active hydroCHLOROthi azide (HYDRODIURIL) 25 mg tablet Take 1 tablet (25 mg total) by mouth 1 (one) time each day. 90 tablet 1 5 Active amLODIPine (NORVASC) 10 mg tablet TAKE 1 TABLET BY MOUTH DAILY 90 tablet 1 5 Active bisacodyL (DULCOLAX) 5 mg EC tablet Take 2 tablets by mouth right before beginning bowel prep. See instructions provided by the office 2 tablet 5 Active polyethylene glycol (Golytely) 236-22.74-6.74 -5.86 gram solution Take 4L by mouth once for one dose. May substitue any PEG. Starting at 6PM the night before your procedure drink 1 8oz glasses at your own pace until you complete half of the gallon. Finish 2nd half of the gallon 5 hours before your procedure. 4000 mL 5 Active lisinopriL (PRINIVIL,ZEST RIL) 20 mg tablet Take 1 tablet (20 mg total) by mouth 1 (one) time each day. 90 tablet 1 5 025 Active predniSONE (DELTASONE) 20 mg tablet 3 tabs po x 3 days then 2 tabs po x 3 days then one tab x 3 days 18 each 5 5 Active Dulera 200-5 mcg/actuation inhaler 5 Active albuterol 2.5 mg /3 mL (0.083 %) nebulizer solution 5 Active megestroL (MEGACE) 400 mg/10 mL (40 mg/mL) suspension Take 5 mL (200 mg total) by mouth 1 (one) time each day. Shake well just before you measure a dose. Measure with a special dose-measuring spoon or medicine cup, not with a regular table spoon. If you do not have a dose-measuring device, ask your pharmacist for one. 150 mL 5 5 Active oxyCODONE-acet aminophen (PERCOCET) 10-325 mg per tablet Take 1 tablet by mouth every 6 (six) hours if needed for severe pain. for pain Max Daily Amount: 4 tablets 112 tablet 5 Active megestroL (MEGACE) 400 mg/10 mL (40 mg/mL) suspension 4 025 Discontin ued(Reord er) oxyCODONE-acet aminophen (PERCOCET) 10-325 mg per tablet Take 1 tablet by mouth every 6 (six) hours if needed for severe pain. for pain Max Daily Amount: 4 tablets 112 tablet 5 025 Discontin ued(Reord er) Active Problems Problem Noted Date Diagnosed Date Calcific tendinitis of right hip 05/16/2022 Asymptomatic microscopic hematuria 12/06/2021 Overview (05/14/2024): Last Assessment & Plan: Repeat UA and urine culture ordered. If persistent hematuria will refer to urology. Postmenopausal bleeding 12/06/2021 Overview (05/14/2024): Last Assessment & Plan: I discussed the common causes of postmenopausal bleeding including trauma, atrophy, and endometrial polyps, as well as less common but more concerning causes including endometrial hyperplasia and endometrial carcinoma. Reviewed results of pelvic ultrasound from ER records measuring endometrial stripe 4mm. Endometrial biopsy performed today. We discussed postprocedure cramping and light bleeding. Advised to avoid anything in the vagina for three days. Advised to call with increasing pain, heavy bleeding, or fever. Pt will be informed of results when available. Of note ER records report brownish material that appears to be somewhat feculent on pelvic exam. This was likely old blood as no abnormal vaginal discharge noted on exam today. Cervical disc disease 09/06/2021 Mixed hyperlipidemia 09/06/2021 COVID-19 08/08/2021 Overview (05/14/2024): DX: 08/03/21 at [facility] Pre-diabetes 03/05/2020 JUANPABLO (obstructive sleep apnea) 10/10/2019 PAD (peripheral artery disease) ([facility] V24) Irritable bowel syndrome wit h both constipation and diarrhea 12/11/2017 Thyroid nodule 11/26/2017 Overview (05/14/2024): s/p partial thyroidectomy Lumbar disc disease 02/13/2014 Asthma 01/17/2013 Overview (05/14/2024): Multiple hospitalizations, states collapsed lungs multiple times, has been intubated x 2 CVA, old, 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 (05/14/2024): 2009, had left sided ataxia, hemiparesis, improved s/p therapy HTN (hypertension) 01/17/2013 Major depression 01/17/2013 Encounters Date Type Department Care Team Description 03/05/2025 Telephone [facility] Worker [facility] [address] [place] [address] Bernard Vázquez 03/04/2025 Telephone Gastroenterology [facility] [address] [facility] [address] [facility] [address] [place] [address] Asmita Calderón LPN 03/03/2025 Referral Triage [facility] Worker [address] [phone] Bishop Parkinson 02/20/2025 3:30 PM EDT Office Visit Adult Medicine [address] [phone] Rodger Teixeira MD Cervical disc disease (Primary Dx); Primary hypertension; Chronic obstructive pulmonary disease, unspecified COPD type (CMS/HCC V24, CMS/HCC V28); Underweight (BMI < 18.5); Chronic epigastric pain 01/26/2025 Telephone Gastroenterology - [address] [facility] [address] [facility] [address] [place] [address] Pedro Marshall MD from Last 3 Months Immunizations Name Administration Dates Next Due Influenza trivalent, 0.5mL ( Fluad) 65yo and older 03/27/2023,03/15/2022,04/25/2021,05/06,04/09/2018 Influenza trivalent, 0.5mL, preservative free (Fluarix; FluLaval; Fluzone) ages 6mo and older (Afluria) 3 years and older 04/10/2019,04/04/2015,05/14/2014 Influenza trivalent, with pr eservative (Fluzone; Afluria) 6mo and older 03/22/2017,06/06/2016,04/05/2013,05/02,04/15/2011,05/24/2008 Influenza, Unspecified 05/11/2014,04/28/2010 Pneumococcal conjugate 13 va lent (Prevnar 13, PCV13) 2mo and older 03/13/2019 Pneumococcal conjugate 20 va lent (Prevnar 20, PCV 20) 2mo and older 01/17/2024 Pneumococcal polysaccharide 23 valent (Pneumovax 23) 2yo and older 08/31/2011,11/26/2006 Td Tetanus diptheria (Tdvax) 7yo and older 03/15/2022 Surgical History Surgery Date Site/Laterality Comments KNEE SURGERY PROCEDURE: HISTORICAL KNEE SURGERY OTHER SURGICAL HISTORY 05/2012 PROCEDURE: IN ARTHRD ANT INTERBODY MIN DSC LUMBAR; COMMENT: Dr. Griffin WRIST SURGERY PROCEDURE: HISTORICAL WRIST SURGERY; COMMENT: right x 2 OTHER SURGICAL HISTORY PROCEDURE: PELVIC CONTROL PELVIC SLING; COMMENT: incontinence OTHER SURGICAL HISTORY PROCEDURE: IN ARTHRD ANT INTERBODY MIN DSC CRV BELOW C2 CHOLECYSTECTOMY 07/2013 PROCEDURE: HISTORICAL CHOLECYSTECTOMY OTHER SURGICAL HISTORY PROCEDURE: HISTORICAL SUBTOTAL THYROIDECTOMY BREAST LUMPECTOMY PROCEDURE: ---- BREAST LUMP BIOPSY ----; COMMENT: x3 ECTOPIC SURGERY 1982 PROCEDURE: HISTORICAL ECTOPIC SURGERY COLONOSCOPY 08/26/2004 PROCEDURE: HISTORICAL COLONOSCOPY; COMMENT: Dr Crain - adenoma @ 60 cm COLONOSCOPY 07/12/2007 PROCEDURE: IN COLONOSCOPY STOMA DX INCLUDING COLLJ SPEC SPX; COMMENT: Dr Crain - adenomas @ 70 cm COLONOSCOPY 03/11/2010 PROCEDURE: IN COLONOSCOPY STOMA DX INCLUDING COLLJ SPEC SPX; COMMENT: Dr Crani - small adenoma; repeat in 5 years FLEXIBLE SIGMOIDOSCOPY 04/27/2011 PROCEDURE: IN SIGMOIDOSCOPY FLX DX W/COLLJ SPEC BR/WA IF PFRMD; COMMENT: Dr Whitaker - melanosis coli BREAST SURGERY PROCEDURE: IN UNLISTED PROCEDURE BREAST COLONOSCOPY W/ BIOPSIES 04/10/14 [facility] PROCEDURE: IN COLONOSCOPY W/BIOPSY SINGLE/MULTIPLE; COMMENT: small adenomas and hemorrhoids; repeat in 3 yrs under propofol COLONOSCOPY W/ BIOPSIES 11/24/15 [facility] PROCEDURE: IN COLONOSCOPY W/BIOPSY SINGLE/MULTIPLE; COMMENT: hemorrhoids; normal colonic biopsies; repeat in 5 years under propofol ESOPHAGOGASTRODUODENOSCOPY 07/12/2007 PROCEDURE: IN ESOPHAGOGASTRODUODENOSCOPY TRANSORAL DIAGNOSTIC; COMMENT: Dr Paras rodriguez; bx normal ESOPHAGOGASTRODUODENOSCOPY 03/11/2010 PROCEDURE: IN ESOPHAGOGASTRODUODENOSCOPY TRANSORAL DIAGNOSTIC; COMMENT: Dr Paras rodriguez; h. pylori negative OTHER SURGICAL HISTORY 05/23/2018 Right PROCEDURE: IN BYPASS W/VEIN FEMORAL-POPLITEAL; COMMENT: Dr. 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 DX:Pancr eatitis, gallstone Family History Medical History Relation Name Comments Colon cancer Father Breast cancer Other 1 DX'D 24 Breast cancer Other 2 NIECE ON MOTHERS SIDE- Cataracts Paternal Grandmother Glaucoma Paternal Grandmother Cataracts Uncle Glaucoma Uncle Blindness Neg Hx Macular degeneration Neg Hx Ovarian cancer Neg Hx Pancreatic cancer Neg Hx Prostate cancer Neg Hx Strabismus Neg Hx Uterine cancer Neg Hx Relation Name Status Comments Father Other 1 DX'D 24 Alive niece Other 2 NIECE ON MOTHERS SIDE- Alive Paternal Grandmother Uncle Social History Tobacco Use Types Packs/Day Years [...] care for your loved ones. For example, child care cook or elderly care for an older adult? [...] 3:27 PM EST Sexual Orientation Straight 08/20/2024 1: 43 PM EST Obstetrics History Last Filed Vital Signs Vital Sign Reading Time Taken Comments Blood Pressure 135/68 02/20/2025 3:00 PM EDT Pulse 78 02/20/2025 3:00 PM EDT Temperature 35.4 C (95.7 F) 02/20/2025 3:00 PM EDT Respiratory Rate 14 02/20/2025 3:00 PM EDT Oxygen Saturation 97% 02/20/2025 3:00 PM EDT Inhaled Oxygen Concentration - - Weight 43.5 kg (96 lb) 02/20/2025 3:00 PM EDT Height 160 cm (5' 3 ) 02/20/2025 3:00 PM EDT Body Mass Index 17.01 02/20/2025 3:00 PM EDT Plan of Treatment Upcoming Encounters Date Type Department Care Team (Late st Contact Info) Description 03/30/2025 8:15 AM EDT Hospital Encounter [facility] Endoscopy [address] [place] [address] Pedro Marshall MD [address] [place] [phone] 05/21/2025 3:00 PM EST Office Visit Adult Medicine [address] [phone] Rodger Tiexeira MD [address] [place] [phone] Health Maintenance Due Date Last Done Comments Zoster Vaccines (1 of 2) 2002 RSV Immunization Adult Patients (1 - Risk 60-74 years 1-dose series) 2012 Cervical Cancer Screening: HPV 09/24/2018 09/24/2013 Osteoporosis Screening (Bone Density Screening) 06/16/2022 Medicare Annual Wellness Visit 12/26/2023 12/25/2022 Depression Screening 07/09/2024 Breast Cancer Screening 02/07/2025 02/08/20 23, 02/03/2022, 08/06/2020, Additional history exists COVID-19 Vaccine ( season) 2025 11/08/2020, 10/09/2020 Influenza Vaccine (#1) 2025 , 03/15/2022, 04/25/2021, Additional history exists Falls Risk Assessment 08/20/2025 08/20/2024, 024 Hypertension/CHF/CAD Annual BMP Blood Test 11/13/2025 11/13/2024, 10/12/2023 Social Influencers of Health Screening 03/05/2026 03/05/2025 Colorectal Cancer Screening: Colonoscopy 08/20/2027 08/20/2024, 12/07/2021 Cholesterol Screening (Lipid Panel) 11/20/2029 11/20/2024, 10/12/2023 DTaP,Tdap,and Td Vaccines (2 - Td or Tdap) 03/15/2032 03/15/2022 Hepatitis C Screening Completed 08/14/2013 Pneumococcal Vaccine: 50+ Years Completed 01/17/2024, 03/13/2019, 08/31/2011, Additional history exists HIB Vaccines Aged Out No longer eligi ble based on patient's age to complete this topic HPV Vaccines Aged Out No longer eligi ble based on patient's age to complete this topic Hepatitis A Vaccines Aged Out No long er eligible based on patient's age to complete this topic Hepatitis B Vaccines Aged Out No long er eligible based on patient's age to complete this topic IPV Vaccines Aged Out No longer eligi ble based on patient's age to complete this topic MMR Vaccines Aged Out No longer eligi ble based on patient's age to complete this topic Meningococcal ACWY Vaccine Aged Out N o longer eligible based on patient's age to complete this topic Meningococcal B Vaccine Aged Out No l onger eligible based on patient's age to complete this topic RSV Immunization Patients Under 20 months Aged Out No longer eligible based on patient's age to complete this topic Varicella Vaccines Aged Out No longer eligible based on patient's age to complete this topic Procedures Procedure Name Priority Date/Time Associated Diagnosis Comments EXTERNAL VASCULAR ULTRASOUND 12/31/2024 LIPID PANEL WITH REFLEX TO DIRECT LDL Routine 11/20/2024 12:55 PM EDT Mixed hyperlipidemia BASIC METABOLIC PANEL Routine 11/13/2024 3:40 PM EDT Primary hypertension COLONOSCOPY Routine 08/20/2024 2:52 PM EST Weight loss Diarrhea History of colon polyps FALLS RISK ASSESSMENT Routine 01/17/2024 SCREENING MAMMOGRAPHY BI 2-VIEW BREAST INC CAD Routine 02/07/2023 3:40 PM EDT Encounter for screening mammogram for malignant neoplasm of breast HPV Routine 09/24/2013 HEPATITIS C SCREENING Routine 08/14/2013 from Last 3 Months or Most Recently Relevant to Health Maintenance Results * External Vascular Ultrasound (12/31/2024) Anatomical Region Laterality Modality Ultrasound us Provider [facility] CV VASCULAR PROCEDURES F inal Result * (ABNORMAL) Lipid panel with reflex to direct LDL (11/20/2024 12:55 PM EDT) Cholesterol 236(H) 0 - 200 mg/dL LAB CHEMISTRY METHOD 11/20/2024 2:52 PM EDT [facility] Triglycerides 173(H) 0 - 150 mg/dL LAB CHEMISTRY METHOD 11/20/2024 2:52 PM EDT [facility] HDL 92 >=40 mg/dL LAB CHEMISTRY METHOD 11/20/2024 2:52 PM EDT [facility] LDL Calculated 109(H) 0 - 100 mg/dL LAB CHEMISTRY METHOD 11/20/2024 2:52 PM EDT [facility] VLDL Cholesterol Ethan 34.6 mg/dL LAB CHEMISTRY METHOD 11/20/2024 2:52 PM EDT [facility] Non HDL Chol. (LDL+VLDL) 144 <145 mg/dL LAB CHEMISTRY METHOD 11/20/2024 2:52 PM EDT [facility] Chol/HDL Ratio 2.6 0.0 - 4.4 LAB CHEMISTRY METHOD 11/20/2024 2:52 PM [facility] Blood Venous blood specimen / Unknown Venipuncture / Unknown 11/20/2024 12:55 PM EDT 11/20/2024 12:55 PM EDT Shayy BELCHER LAB BLOOD ORDERABLES Fi nal Result [facility] [address] [place] [address], * (ABNORMAL) Basic metabolic panel (11/13/2024 3:40 PM EDT) Sodium 135 133 - 145 mmol/L LAB CHEMISTRY METHOD 11/13/2024 7:08 PM [facility] Potassium 4.3 3.5 - 5.5 mmol/L LAB CHEMISTRY METHOD 11/13/2024 7:08 PM [facility] Chloride 103 96 - 110 mmol/L LAB CHEMISTRY METHOD 11/13/2024 7:08 PM [facility] CO2 24 21 - 32 mmol/L LAB CHEMISTRY METHOD 11/13/2024 7:08 PM [facility] Anion Gap 8 3 - 11 LAB CHEMISTRY METHOD 11/13/2024 7:08 PM [facility] Glucose 102(H) 70 - 100 mg/dL LAB CHEMISTRY METHOD 11/13/2024 7:08 PM [facility] BUN 14 5 - 25 mg/dL LAB CHEMISTRY METHOD 11/13/2024 7:08 PM [facility] Creatinine 0.65 0.50 - 1.10 mg/dL LAB CHEMISTRY METHOD 11/13/2024 7:08 PM [facility] eGFR 94 >=60 mL/min/1. 73m2 LAB CHEMISTRY METHOD 11/13/2024 7:08 PM [facility] Comment:Calculation based on the Chronic Kidney Disease Epidemiology Collaboration (CKD-EPI) equation refit without adjustment for race. BUN/Creatinine Ratio 21.5 LAB CHEMISTRY METHOD 11/13/2024 7:08 PM EDT [facility] Calcium 9.6 8.5 - 10.5 mg/dL LAB CHEMISTRY METHOD 11/13/2024 7:08 PM EDT [facility] Blood Venous blood specimen / Unknown Venipuncture / Unknown 11/13/2024 3:40 PM EDT 11/13/2024 3:40 PM EDT us Rodger Teixeira MD LAB BLOOD ORDERABLES Final Resu lt [facility]) [facility] [address] [place] [address], [place] [phone] * COLONOSCOPY Anesthesia - MAC; [facility] ENDOSCOPY (08/20/2024 2:52 PM EST) Anatomical Region Laterality Modality Other 08/20/2024 1:56 PM EST Impressions 08/20/2024 2:55 PM EST - Preparation of the colon was fair. - Stool in the entire examined colon. - The examination was otherwise normal. - No specimens collected. Recommendation: - Perform an upper GI endoscopy today. - Repeat colonoscopy at appointment to be scheduled because the bowel preparation was poor. Narrative 08/20/2024 2:55 PM EST [facility] GI Patient Name: Adam Bolaños Procedure Date: 08/20/2024 1:56 PM Date of : 1950 Age: 73 Room: ROOM 14 Gender: Female Note Status: Finalized Attending MD: Pedro Marshall MD, Procedure Date No Time: 08/20/2024 Procedure: Colonoscopy Indications: Screening in patient at increased risk: Family history of 1st-degree relative with colorectal cancer before age 60 years, High risk colon cancer surveillance: Personal history of colonic polyps Providers: Pedro Marshall MD Referring MD: David Tony MD Medicines: Monitored Anesthesia Care Complications: No immediate complications. Estimated Blood Loss: Estimated blood loss: none. Procedure: Pre-Anesthesia Assessment: - ASA Grade Assessment: III - A patient with severe systemic disease. - After reviewing the risks and benefits, the patient was deemed in satisfactory condition to undergo the procedure. After I obtained informed consent, the scope was passed under direct vision. Throughout the procedure, the patient's blood pressure, pulse, and oxygen saturations were monitored continuously.The Colonoscope was introduced through the anus and advanced to the transverse colon. The colonoscopy was somewhat difficult due to unsatisfactory bowel prep. The patient tolerated the procedure well. The quality of the bowel preparation was fair. Findings: A moderate amount of stool was found in the entire colon, interfering with visualization. The exam was otherwise without abnormality. Procedure Code(s): --- Professional --- G0105, 53, Colorectal cancer screening; colonoscopy on individual at high risk Diagnosis Code(s): --- Professional --- Z80.0, Family history of malignant neoplasm of digestive organs Z86.010, Personal history of colonic polyps CPT copyright 2020 [employer]. All rights reserved. The codes documented in this report are preliminary and upon home care giver review may be revised to meet current compliance requirements. Pedro Marshall MD 08/20/2024 2:55:23 PM This report has been signed electronically.Pedro Marshall MD Number of Addenda: 0 Note Initiated On: 08/20/2024 1:56 PM Scope In: Scope Out: Endoscopy Department at [facility] - [address] [place] [phone] Procedure Note Pedro Marshall MD - 08/20/2024 [facility] GI Patient Name: Adam Bolaños Procedure Date: 08/20/2024 1:56 PM Date of : 1950 Age: 73 Room: ROOM 14 Gender: Female Note Status: Finalized Attending MD: Pedro Marshall MD, Procedure Date No Time: 08/20/2024 Procedure: Colonoscopy Indications: Screening in patient at increased risk: Familyhistory of 1st-degree relative with colorectal cancerbefore age 60 years, High risk colon cancer surveillance: Personal history of colonic polyps Providers: Pedro Masrhall MD Referring MD: David Tony MD Medicines: Monitored Anesthesia Care Complications: No immediate complications. Estimated Blood Loss: Estimated blood loss: none. Procedure: Pre-Anesthesia Assessment: - ASA Grade Assessment: III - A patient with severe systemic disease. - After reviewing the risks and benefits, thepatient was deemed in satisfactory condition to undergo the procedure. After I obtained informed consent, the scope was passed under direct vision. Throughout theprocedure, the patient's blood pressure, pulse, and oxygen saturations were monitored continuously.The Colonoscope was introduced through the anus and advanced to the transverse colon. The colonoscopywas somewhat difficult due to unsatisfactory bowelprep. The patient tolerated the procedure well. Thequality of the bowel preparation was fair. Findings: A moderate amount of stool was found in the entire colon, interfering with visualization. The exam was otherwise without abnormality. Procedure Code(s): --- Professional --- G0105, 53, Colorectal cancer screening; colonoscopyon individual at high risk Diagnosis Code(s): --- Professional --- Z80.0, Family history of malignant neoplasm of digestive organs Z86.010, Personal history of colonic polyps CPT copyright 2020 [employer]. All rights reserved. The codes documented in this report are preliminary and upon home care giver reviewmay be revised to meet current compliance requirements. Pedro Marshall MD 08/20/2024 2:55:23 PM This report has been signed electronically.Pedro Marshall MD Number of Addenda: 0 Note Initiated On: 08/20/2024 1:56 PM Scope In: Scope Out: Endoscopy Department at [facility] - [address] [place] [phone] IMPRESSION: - Preparation of the colon was fair. - Stool in the entire examined colon. - The examination was otherwise normal. - No specimens collected. Recommendation: - Perform an upper GI endoscopy today. - Repeat colonoscopy at appointment to be scheduled because the bowel preparation was poor. David Tony MD GI~PROCEDURE ORDERABLES Final Re sult * Falls Risk Assessment (01/17/2024) Falls Risk Assessment abstracted Historical Provider HEALTH MAINTENANCE Final Result * SCREENING MAMMOGRAPHY BI 2-VIEW BREAST INC CAD (02/07/2023 3:40 PM EDT) Anatomical Region Laterality Modality Radiographic Estrellita ging 02/03/2022 3:52 PM EDT Narrative 02/09/2023 10:02 AM EDT This is a summary report. The complete report is available in the patient's medical record. If you cannot access the medical record, please contact the sending organization for a detailed fax or copy. BILATERAL 3D DIGITAL SCREENING MAMMOGRAM History: Routine screening. No current breast complaints. Family history of breast cancer Comparison: Multiple priors dating back to 08/06/2020 Technique: Bilateral full-field digital 3D mammography was performed using standard CC and MLO projections CAD was used to evaluate this mammogram. Findings: Density: There are scattered areas of fibroglandular density-B RIGHT: No suspicious masses, groups of microcalcification or areas of architectural distortion identified. Stable typically benign parenchymal asymmetries LEFT: No suspicious masses, groups of microcalcifications or areas of architectural distortion identified. Stable typically benign parenchymal asymmetries. Lateral breast postprocedural changes. IMPRESSION: : 1. No mammographic evidence of malignancy. BI-RADS Category 2 benign findings Recommendation: Routine annual screening mammography is recommended Procedure Note Raj Pop MD - 08/14/2023 This is a summary report. The complete report is available in thepatient's medical record. If you cannot access the medical record, pleasecontact the sending organization for a detailed fax or copy. BILATERAL 3D DIGITAL SCREENING MAMMOGRAM History: Routine screening. No current breast complaints. Family historyof breast cancer Comparison: Multiple priors dating back to 08/06/2020 Technique: Bilateral full-field digital 3D mammography was performed usingstandard CC and MLO projections CAD was used to evaluate this mammogram. Findings: Density: There are scattered areas of fibroglandular density-B RIGHT: No suspicious masses, groups of microcalcification or areas ofarchitectural distortion identified. Stable typically benign parenchymalasymmetries LEFT: No suspicious masses, groups of microcalcifications or areas ofarchitectural distortion identified. Stable typically benign parenchymalasymmetries. Lateral breast postprocedural changes. IMPRESSION: : 1. No mammographic evidence of malignancy. BI-RADS Category 2 benign findings Recommendation: Routine annual screening mammography is recommended Rodger Teixeira MD IMG XR PROCEDURES Final Result * Cervical Cancer Screening: HPV (09/24/2013) Cervical Cancer Screening: HPV abstracted, negative Historical Provider HEALTH MAINTENANCE Final Result * Hepatitis C Screening (08/14/2013) Pathologist Replaced by [facility] Hepatitis C Screening abstracted Historical Provider HEALTH MAINTENANCE Final Result from Last 3 Months or Most Recently Relevant to Health Maintenance Insurance [place]ID [place] Advance Directives Documents on File Type Date Recorded Patient Test Lead Application Testing Expl anation Health Care Decision (hx) 05/22/2018 AD GOLDSTEIN DIRECTIVE Health Care Decision (hx) 05/22/2018 AD GOLDSTEIN DIRECTIVE Health Care Decision (hx) 05/22/2018 AD GOLDSTEIN DIRECTIVE Health Care Decision (hx) 05/22/2018 AD GOLDSTEIN DIRECTIVE Health Care Decision (hx) 05/22/2018 AD GOLDSTEIN DIRECTIVE Health Care Decision (hx) 05/22/2018 AD GOLDSTEIN DIRECTIVE Health Care Decision (hx) 05/22/2018 AD GOLDSTEIN DIRECTIVE Health Care Decision (hx) 05/22/2018 AD GOLDSTEIN DIRECTIVE Health Care Decision (hx) 05/22/2018 AD GOLDSTEIN DIRECTIVE Health Care Decision (hx) 05/22/2018 AD GOLDSTEIN DIRECTIVE Health Care Decision (hx) 05/22/2018 AD GOLDSTEIN DIRECTIVE Health Care Decision (hx) 05/22/2018 AD GOLDSTEIN DIRECTIVE Health Care Decision (hx) 05/22/2018 AD GOLDSTEIN DIRECTIVE Health Care Decision (hx) 05/22/2018 AD GOLDSTEIN DIRECTIVE Health Care Decision (hx) 05/22/2018 AD GOLDSTEIN DIRECTIVE Health Care Decision (hx) 05/22/2018 AD GOLDSTEIN DIRECTIVE Health Care Decision (hx) 05/22/2018 AD GOLDSTEIN DIRECTIVE Health Care Decision (hx) 05/22/2018 AD GOLDSTEIN DIRECTIVE Health Care Decision (hx) 05/22/2018 AD GOLDSTEIN DIRECTIVE Health Care Decision (hx) 05/22/2018 AD GOLDSTEIN DIRECTIVE Health Care Decision (hx) 05/22/2018 AD GOLDSTEIN DIRECTIVE Health Care Decision (hx) 05/22/2018 AD GOLDSTEIN DIRECTIVE Health Care Decision (hx) 05/22/2018 AD GOLDSTEIN DIRECTIVE Health Care Decision (hx) 05/22/2018 AD GOLDSTEIN DIRECTIVE Health Care Decision (hx) 05/22/2018 AD GOLDSTEIN DIRECTIVE Health Care Decision (hx) 05/22/2018 AD GOLDSTEIN DIRECTIVE Health Care Decision (hx) 05/22/2018 AD GOLDSTEIN DIRECTIVE Health Care Decision (hx) 05/22/2018 AD GOLDSTEIN DIRECTIVE Health Care Decision (hx) 05/22/2018 AD GOLDSTEIN DIRECTIVE Health Care Decision (hx) 05/22/2018 AD GOLDSTEIN DIRECTIVE Care Teams Invoice Coder Relationship Specialty Start Date End Date Rodger Teixeira MD [address] [place] [phone] PCP - General Internal Medicine 12/27/12
--- OUTSIDE RECORDS SUMMARY | 2025-03-11 18:29 | XMS_ITS | Patient Health Record ---
Author Organization [facility] Address [address] [place] [address] Care Team Providers Care General Freight Agent Name Role Phone Rodger Teixeira MD Primary Care Provider Redd Pulido Jr Unavailable [phone] Reason For Referral No Information Medications Medication SIG (Take, Route, Frequency, Duration) Notes Start Date End Date Status amLODIPine Besylate 2.5mg Active Omeprazole Active ProAir HFA 90mcg Act gabby Omeprazole 20 MG 1 capsule Orally Onc e a day for 30 day(s) 04/17/2013 Active Singulair 10mg Activ e Cymbalta 30mg Active traZODone HCl 50mg A ctive hydroCHLOROthiazide 25mg Active Aspir-81 81mg Active Symbicort 160/4.5 Ac tive Topiramate 25mg Acti ve Albuterol 2.5mg 07/09/2024 07/09/2024 Ac tive diazePAM 5mg Active Problems Problem Type SNOMED Code ICD Code Onset Dates Problem Status W/U Status Risk Notes Problem Esophageal reflux (705348613) Esophageal reflux (530.81) Active confirmed Problem Constipation (14038158) Constipation (564.00) Active confirmed Problem Family History of Cancer of Colon (Situation) (557456921) Family history of colon cancer (V16.0) Active confirmed Plan Of Treatment No Information Insurance Providers Payer Name Payer Address Payer Phone Subscriber Number Group Number Insured Name Patient Relationship to Insured Coverage Start Date Coverage End Date [facility] [facility] [address] [address] [place], [place] [id number] GRETA GOMEZ Self - patient is the insured Medical (General) History Medical History History ICD Code colonoscopy 03-11-2010 colon polyps asthma environmental allergies anxiety depression insomnia hypertension headaches esophageal reflux Surgical History Surgery Date(Month/Year) right knee arthroscopy tubal thyroid surgery back surgery 2012
--- OUTSIDE RECORDS SUMMARY | 2025-03-11 18:29 | XMS_ITS | Encounter Summary ---
Author Organization [facility] Address [address] [place] [address] Care Team Providers Care Executive Coordinator Name Role Phone Rodger Teixeira MD Primary Care Provider [phone] Reason for Visit * Reason Onset Date Comments Anticoagulation 03/04/[address] Marshall Encounter Details Date Type Department Care Team (Late st Contact Info) Description 03/04/2025 Telephone Gastroenterology - [place] [address] [place] [address] Asmita Calderón LPN Social History Tobacco Use Types Packs/Day Years [...] Record ed Within the last 3 months, mumtaz maharaj many times did you visit the emergency [...] for your loved ones. For example, child welfare worker or elderly care for an older adult? [...] Orientation Straight 08/20/2024 1: 43 PM EST documented as of this encounter Progress Notes * Rodger Teixeira MD - 03/10/2025 8:21 PM EDT Pt with hx if cva > one year ago pt may hold the plavix for 5 days prior to her scheduled colonoscopy * Asmita Calderón LPN - 03/04/2025 8:54 AM EDT Colonoscopy on 03/30/25, Can pt hold plavix for 5 days before procedure? documented in this encounter Plan of Treatment Upcoming Encounters Date Type Department Care Team (Late st Contact Info) Description 03/30/2025 8:15 AM EDT Hospital Encounter [facility] Endoscopy [address] [place] [phone] Pedro Marshall MD [address] [place] [phone] 05/21/2025 3:00 PM EST Office Visit Adult [address] [phone] Rodger Teixeira MD [address] [place] [address] documented as of this encounter Visit Diagnoses Not on filedocumented in this encounter Care Teams Executive Coordinator Relationship Specialty Start Date End Date Rodger Teixeira MD [address] [place] [address] PCP - General Internal Medicine 12/27/12 documented as of this encounter
[2025-03-11 20:00] VITALS: BP 134/65; PULSE 67; RESP 17; TEMP 36.4; O2SAT 96
[2025-03-11] MEDS: Albuterol Sulfate 5 MG, Albuterol/Iprat 2.5/0.5MG 3 ML 3 ML INHALE (20:04)
[2025-03-11 20:05] VITALS: PULSE 72; RESP 18; O2SAT 95
[2025-03-11 20:43] VITALS: BP 134/65; PULSE 72; RESP 18; TEMP 36.4; O2SAT 96
== END 2025-03-11 20:45 | disposition home or self-care (01) ==
PROVIDERS: Physician Assistant Medical; Emergency Provider Emergency Medicine Emergency Medical Services; PCP Internal Medicine
DX: J44.1 Chronic obstructive pulmonary disease with (acute) exacerbation (principal); Z79.899 Other long term (current) drug therapy; Z86.73 Personal history of transient ischemic attack (TIA), and cerebral infarction without residual deficits
CPT/HCPCS: 71046; 80053; 83735; 85025; 87502; 87635; 94640; 96365; 96375; 99284; 99285; J2919; J3475

== ENCOUNTER → 2025-03-11 15:23 | Outpatient (BNV) | payer MEDICARE, MEDICAID, SELFPAY | PROVIDERS: PCP Internal Medicine; Visit Provider Radiology Diagnostic Radiology | DX: R05.9 Cough, unspecified (principal) | CPT/HCPCS: 71046 ==

== ENCOUNTER 2025-06-30 17:46 | Emergency (ER) | payer MEDICARE, MEDICAID, SELFPAY ==
--- NOTE | ~2025-06-30 | CT_ITS ---
CLINICAL HISTORY: left lower abdominal pain CT abdomen and pelvis with contrast Comparison: CT - CT ABDOMEN PELVIS W IV CON - 06/30/25 19:01 EST Findings: Bibasilar atelectasis noted The gallbladder is absent. There is postsurgical prominence of the common bile duct and intrahepatic bile ducts. No liver lesion. The spleen, adrenal glands and pancreas are unremarkable. Kidneys, ureters and bladder are within normal limits. Uterus and adnexa are within normal limits. Abnormal thickening of the descending colon with surrounding stranding. No pneumatosis, free air, free fluid or abscess. Moderate atherosclerotic disease. No acute osseous finding. Impression: Findings suggest mild colitis most pronounced along the descending colon This document has been electronically signed by: Tam Costa MD on 06/30/2025 20:14:48
[2025-06-30 17:50] VITALS: BP 145/70; PULSE 85; RESP 20; TEMP 36.3; O2SAT 98; BMI 15.1
[2025-06-30 18:10] LABS: Hematocrit 43.0 % (37.0-47.0); Hemoglobin 14.7 g/dl (12.0-16.0); Imm Gran Abs Auto 0.01 X10*3/uL (0.00-0.03); Imm Gran Pct Auto 0.2 % (0.0-0.4); Lymphocytes Absolute Auto 2.7 X10*3/uL (1.2-4.9); MANUAL DIFF FLAG NO; Mean Corpuscular HGB Conc 34.2 g/dl (31.0-35.0); Mean Corpuscular Hemoglobin 31.3 pg (27.0-33.0); Mean Corpuscular Volume 91.5 fL (80.0-98.0); NRBC Abs Auto 0.000 X10*3/uL (0.0-0.012); NRBC Pct Auto 0.0 /100WBC (0.0-0.2); Platelet Count 241 X10*3/uL (160-400); Red Blood Count 4.70 X10*6/uL (4.20-5.50); White Blood Count 5.6 X10*3/uL (4.8-10.8)
--- OUTSIDE RECORDS SUMMARY | 2025-06-30 18:13 | XMS_ITS ---
Author Organization [facility] [address] [facility] Address [address] [place] [address] Phone Care Team Providers Care Automatic Driller And Reamer Name Role Phone Rodger Teixeira MD Primary Care Provider [phone] High Risk Care Management Status:Ongoing (Active) Start date:02/17/2025 Enrollment date:02/27/2025 Related social drivers of health:Housing Instability, Food Access & Nutrition, Access to Healthcare, TH Health Literacy, Financial Risk, Transportation, Social Isolation, Food Risk Case Team Name Relationship Phone Peace Davis RN(Responsible Staff) Care Mark conrad Continued Care and Services Coordination
--- OUTSIDE RECORDS SUMMARY | 2025-06-30 18:13 | XMS_ITS | Clinical Summary ---
Author Organization [facility] Prior to 12/06/[address] [place] [address] Care Team Providers Care Consultant In Ergonomics And Safety Name Role Phone Rodger Teixeira MD Primary Care Provider [phone] Allergies No known active allergies Medications Medication [...] every night at bedtime. 0 Active Tiotropium [place] Monohydrate (SPIRIVA HANDIHALER IN) Inhale into the lungs. 0 Active clopidogrel (PLAVIX) 75 MG tablet Take 75 mg by mouth daily. 0 Active pancrelipase, Oih-Ueac-Jjvn, (Creon) [address] units CPEP Take 1 capsule (24,000 units [...] age to complete this topic Care Teams Consultant In Ergonomics And Safety Relationship Specialty Start Date End Date Rodger eTixeira MD PCP - General Internal Medicine 03/05/19
--- OUTSIDE RECORDS SUMMARY | 2025-06-30 18:13 | XMS_ITS | Encounter Summary ---
Author Organization [facility] Address [address] [place] [address] Care Team Providers Care Continuing Education Instructor Name Role Phone Rodger Teixeira MD Primary Care Provider [phone] Encounter Details Date Type Department Care Team (Late st Contact Info) Description 03/03/2025 Referral Triage [facility] Health Worker [address] [phone] [facility] Social History Tobacco Use Types Packs/Day Years Used Date Smoking Tobacco: Former Cigarettes 0 Q uit: 03/15/2018 Smokeless Tobacco: Never Alcohol [...] for your loved ones. For example, child protective services specialist or elderly care for an older adult? [...] Date Recorded What is your living situation? Unrecognized valu e 03/05/2025 Interpersonal Safety Answer Date Record ed Physical Abuse Unrecognized value 08/20/2024 Verbal Abuse Unrecognized value 08/20/2024 Comments No Sex and Gender Information [...] housing [facility] Community Health Worker (CHW) Customer Marketing Intern/Regional documented in this encounter Plan of Treatment Upcoming Encounters Date Type Department Care Team (Late st Contact Info) Description 08/18/2025 1:40 PM EST Office Visit Gastroenterology - [address] [phone] David Tony MD [address] [address] 08/25/2025 1:00 PM EST Office Visit Adult Medicine [address] [phone] Shayy Perdomo PA [address] [place] [address] documented as of this encounter Visit Diagnoses Not on filedocumented in this encounter Care Teams Continuing Education Instructor Relationship Specialty Start Date End Date Rodger Teixeira MD [address] [place] [address] PCP - General Internal Medicine 12/27/12 documented as of this encounter
--- OUTSIDE RECORDS SUMMARY | 2025-06-30 18:13 | XMS_ITS | Patient Health Record ---
Author Organization [facility] Address [address] [place] [address] Care Team Providers Care Rent And Housing Investigator Name Role Phone Rodger Teixeira MD Primary Care Provider Redd Pulido Jr Unavailable Reason For Referral No Information Medications Medication SIG (Take, Route, Frequency, Duration) Notes Start Date End Date Status amLODIPine Besylate 2.5mg Active Omeprazole Active ProAir HFA 90mcg Act gabby Omeprazole 20 MG Capsule Delayed Release 1 capsule Orally Once a day; Duration: 30 day(s) 04/17/2013 Active Singulair 10mg Activ e Cymbalta 30mg Active traZODone HCl 50mg A ctive hydroCHLOROthiazide 25mg Active Aspir-81 81mg Active Symbicort 160/4.5 Ac tive Topiramate 25mg Acti ve Albuterol 2.5mg Ac tive diazePAM 5mg Active Social History Social History Additional Details Category Social Info Options Details Miscellaneous: Marital status: single Occupation: unemployed Section Notes: Tobacco use less than one vincent lf pack per day. Alcohol use none. Tobacco use less than one vincent lf pack per day. Alcohol use none. Problems Problem Type SNOMED Code ICD Code Onset Dates Problem Status W/U Status Risk Notes Problem Esophageal reflux (457466596) Esophageal reflux (530.81) Active confirmed Problem Constipation (53674881) Constipation (564.00) Active confirmed Problem Family History of Cancer of Colon (Situation) (692614540) Family history of colon cancer (V16.0) Active confirmed Plan Of Treatment No Information Insurance Providers Payer Name Payer Address Payer Phone Subscriber Number Group Number Insured Name Patient Relationship to Insured Coverage Start Date Coverage End Date [facility] [address] [address] [place], [place] [id number] [phone] [id number] GRETA GOMEZ Self - patient is the insured Medical (General) History Medical History History ICD Code colonoscopy 03-11-2010 colon polyps asthma environmental allergies anxiety depression insomnia hypertension headaches esophageal reflux Surgical History Surgery Date(Month/Year) right knee arthroscopy tubal thyroid surgery back surgery 2012
--- OUTSIDE RECORDS SUMMARY | 2025-06-30 18:13 | XMS_ITS | Clinical Summary ---
Author Organization [facility] [address] Address [address] [place] [address] Phone Care Team Providers Care Carton Machine Operator Name Role Phone Rodger Teixeira MD Primary Care Provider [phone] Allergies Active Allergy Reactions Criticality Noted Date [...] by the office 2 tablet 5 Active Additional Information Patient not taking.Reason: Other (duplicate), Reported on 05/21/2025 polyethylene glycol (Golytely) 236-22.74-6.74 -5.86 gram solution Take 4L by mouth once for one dose. May substitue any PEG. Starting at 6PM the night before your procedure drink 1 8oz glasses at your own pace until you complete half of the gallon. Finish 2nd half of the gallon 5 hours before your procedure. 4000 mL 5 Active Additional Information Patient not taking.Reported on 05/21/2025 lisinopriL (PRINIVIL,ZEST RIL) 20 mg tablet Take 1 tablet (20 mg total) by mouth 1 (one) time each day. 90 tablet 1 5 Active predniSONE (DELTASONE) 20 mg tablet 3 tabs po x 3 days then 2 tabs po x 3 days then one tab x 3 days 18 each 5 5 Active Additional Information Patient not taking.Reported on 03/23/2025 Dulera 200-5 mcg/actuation inhaler 5 Active albuterol [...] for one. 150 mL 5 5 Active polyethylene glycol (Golytely) 236-22.74-6.74 -5.86 gram solution Take 4L by mouth once for one dose. May substitue any PEG. Starting at 2PM the day before your procedure drink 1 8oz glasses at your own pace until you complete half of the gallon. Finish 2nd half of the gallon at 8PM. 4000 mL 5 Active Additional Information Patient not taking.Reported on 05/21/2025 bisacodyL (DULCOLAX) 5 mg EC tablet Take 2 tablets by mouth right before beginning bowel prep. See instructions provided by the office 2 tablet 5 Active Additional Information Patient not taking.Reported on 05/21/2025 oxyCODONE-acet aminophen (PERCOCET) 10-325 mg per tabletIndicati ons:Cervical disc disease Take 1 tablet by mouth every 6 (six) hours if needed for severe pain. for pain Max Daily Amount: 4 tablets 112 tablet 5 Active oxyCODONE-acet aminophen (PERCOCET) 10-325 mg per tabletIndicati ons:Cervical disc disease Take 1 tablet by mouth every 6 [...] COVID-19 08/08/2021 Overview (05/14/2024): DX: 08/03/[address] 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 (05/14/2024): 2010, had left sided ataxia, hemiparesis, improved s/p therapy HTN (hypertension) 01/17/2013 Major depression 01/17/2013 Encounters Date Type Department Care Team Description 06/02/2025 [facility] [address] [place] [phone] Bernard Vázquez 05/21/2025 3:00 PM EST Office Visit Adult Medicine [address] [phone] Rodger Teixeira MD Primary hypertension (Primary Dx); Need for prophylactic vaccination and inoculation against influenza; Pure hypercholesterolemia; Encounter for long-term (current) use of medications; Underweight (BMI < 18.5); Chronic epigastric pain; Cervical disc disease; Other chronic pain 04/28/2025 Telephone [facility] [address] [place] [phone] Bernard Vázquez from Last 3 Months Immunizations Immunization Administration Dates Next Due Influenza trivalent, 0.5mL ( Fluad) 65yo and older 05/21/2025,03/27/2023,03/15/2022,04/25,05/06/2020,04/09/2018 Influenza trivalent, 0.5mL, preservative free (Fluarix; FluLaval; [...] KNEE SURGERY OTHER SURGICAL HISTORY 05/2012 PROCEDURE: AR ARTHRD ANT INTERBODY MIN DSC LUMBAR; COMMENT: Dr. Griffin WRIST SURGERY PROCEDURE: HISTORICAL WRIST SURGERY; COMMENT: right x 2 OTHER SURGICAL HISTORY PROCEDURE: PELVIC CONTROL PELVIC SLING; COMMENT: incontinence OTHER SURGICAL HISTORY PROCEDURE: AR ARTHRD ANT INTERBODY MIN DSC CRV BELOW C2 CHOLECYSTECTOMY 07/2013 PROCEDURE: HISTORICAL CHOLECYSTECTOMY OTHER SURGICAL HISTORY PROCEDURE: HISTORICAL SUBTOTAL THYROIDECTOMY BREAST LUMPECTOMY PROCEDURE: ---- BREAST LUMP BIOPSY ----; COMMENT: x3 ECTOPIC SURGERY 1982 PROCEDURE: HISTORICAL ECTOPIC SURGERY COLONOSCOPY 08/26/2004 PROCEDURE: HISTORICAL COLONOSCOPY; COMMENT: Dr Crain - adenoma @ 60 cm COLONOSCOPY 07/12/2007 PROCEDURE: AR COLONOSCOPY STOMA DX INCLUDING COLLJ SPEC SPX; COMMENT: Dr Crain - adenomas @ 70 cm COLONOSCOPY 03/11/2010 PROCEDURE: AR COLONOSCOPY STOMA DX INCLUDING COLLJ SPEC SPX; COMMENT: Dr Crain - small adenoma; repeat in 5 years FLEXIBLE SIGMOIDOSCOPY 04/27/2011 PROCEDURE: AR SIGMOIDOSCOPY FLX DX W/COLLJ SPEC BR/WA IF PFRMD; COMMENT: Dr Whitaker - melanosis coli BREAST SURGERY PROCEDURE: AR UNLISTED PROCEDURE BREAST COLONOSCOPY W/ BIOPSIES 04/10/14 [facility] PROCEDURE: AR COLONOSCOPY W/BIOPSY SINGLE/MULTIPLE; COMMENT: small adenomas and hemorrhoids; repeat in 3 yrs under propofol COLONOSCOPY W/ BIOPSIES 11/24/15 [facility] PROCEDURE: AR COLONOSCOPY W/BIOPSY SINGLE/MULTIPLE; COMMENT: hemorrhoids; normal colonic biopsies; repeat in 5 years under propofol ESOPHAGOGASTRODUODENOSCOPY 07/12/2007 PROCEDURE: AR ESOPHAGOGASTRODUODENOSCOPY TRANSORAL DIAGNOSTIC; COMMENT: Dr Crain - jennifer; bx normal ESOPHAGOGASTRODUODENOSCOPY 03/11/2010 PROCEDURE: AR ESOPHAGOGASTRODUODENOSCOPY TRANSORAL DIAGNOSTIC; COMMENT: Dr Paras rodriguez; h. pylori negative OTHER SURGICAL HISTORY 05/23/2018 Right PROCEDURE: AR BYPASS W/VEIN FEMORAL-POPLITEAL; COMMENT: Dr. Lion BREAST [...] your loved ones. For example, child welfare caseworker or elderly care for an older adult? [...] Date Record ed Physical Abuse Unrecognized value 03/30/2025 Verbal Abuse Unrecognized value 03/30/2025 Comments No Sex and Gender Information Value Date Recorded Sex Assigned at Female 08/14/2024 3:27 PM EST Legal Sex Female 12:43 AM EST Gender Identity Female 08/14/2024 3:27 PM EST Sexual Orientation Straight 08/20/2024 1: 43 PM EST Last Filed Vital Signs Vital Sign Reading Time Taken Comments Blood Pressure 110/64 05/21/2025 2:56 PM EST Pulse 80 05/21/2025 2:56 PM EST Temperature 36.2 C (97.2 F) 05/21/2025 2:56 PM EST Respiratory Rate 16 05/21/2025 2:56 PM EST Oxygen Saturation 97% 05/21/2025 2:56 PM EST Inhaled Oxygen Concentration - - Weight 39.9 kg (88 lb) 05/21/2025 2:56 PM EST Height 160 cm (5' 3 ) 05/21/2025 2:56 PM EST Body Mass Index 15.59 05/21/2025 2:56 PM EST Plan of Treatment Upcoming Encounters Date Type Department Care Team (Late st Contact Info) Description 08/18/2025 1:40 PM EST Office Visit Gastroenterology - [address] [place] [phone] David Tony MD [address] [place] [phone] 08/25/2025 1:00 PM EST Office Visit Adult Medicine [address] [phone] Shayy Perdomo PA [address] [place] [phone] Health Maintenance Due Date Last Done Comments Naloxone Order 1950 Opioid Substance Agreement 1950 Pain Assessment 1950 RSV Immunization Adult Patients (1 - Risk 50-74 years 1-dose series) 2002 Zoster Vaccines (1 of 2) 2002 Cervical Cancer Screening: HPV 09/24/2018 09/24/2013 Osteoporosis Screening (Bone Density Screening) 06/16/2022 Medicare Annual Wellness Visit 12/26/2023 12/25/2022 Depression Screening 07/09/2024 Breast Cancer Screening 02/07/2025 02/08/20 23, 02/03/2022, 08/06/2020, Additional history exists COVID-19 Vaccine ( season) 2025 11/08/2020, 10/09/2020 Hypertension/CHF/CAD Annual BMP Blood Test 11/13/2025 11/13/2024, 10/12/2023 Drug Screen 11/20/2025 11/20/2024 Social Influencers of Health Screening 03/05/2026 03/05/2025 Falls Risk Assessment 03/30/2026 03/30/2025, 024 Colorectal Cancer Screening: Colonoscopy 03/30/2028 03/30/2025, 08/20/2024, 12/07/2021 Cholesterol Screening (Lipid Panel) 11/20/2029 11/20/2024, 10/12/2023 DTaP,Tdap,and Td Vaccines (2 - Td or Tdap) 03/15/2032 03/15/2022 Hepatitis C Screening Completed 08/14/2013 Pneumococcal Vaccine: 50+ Years Completed 01/17/2024, 03/13/2019, 08/31/2011, Additional history exists Influenza Vaccine Completed 05/21/2025, , 03/15/2022, Additional history exists HIB Vaccines Aged Out [...] on patient's age to complete this topic Goals Goal Patient Goal Type Associated Problems Recent Progress Patient-Stated? Author patient will have resources for housing General Yes Peace Davis, RN Note: 02/27/25 referred to [facility] 04/28/25 pt states she is still in need of [facility] outreach for housing. Message sent to [facility] pt will have relief from her shortness of breath General No Peace Davis, RN Note: 04/28/25 pt has been following with pulmonology and is having some testing done to see if she needs O2 and/or to begin injections will provide assessment and education on breathign strategies to reduce symptoms Procedures Procedure Name Priority Date/Time Associated Diagnosis Comments COLONOSCOPY Routine 03/30/2025 8:40 AM EDT History of colon polyps LIPID PANEL WITH REFLEX TO DIRECT LDL Routine 11/20/2024 12:55 PM EDT Mixed hyperlipidemia DRUG ABUSE SCREEN 8A PANEL, URINE Routine 11/20/2024 12:55 PM EDT Encounter for long-term (current) use of medications BASIC METABOLIC PANEL Routine 11/13/2024 3:40 PM EDT Primary hypertension FALLS RISK ASSESSMENT Routine 01/17/2024 SCREENING MAMMOGRAPHY BI 2-VIEW BREAST INC CAD Routine 02/07/2023 3:40 PM EDT Encounter for screening mammogram for malignant neoplasm of breast HPV Routine 09/24/2013 HEPATITIS C SCREENING Routine 08/14/2013 from Last 3 Months or Most Recently Relevant to Health Maintenance Results * COLONOSCOPY Anesthesia - MAC; [facility] ENDOSCOPY (03/30/2025 8:40 AM EDT) Anatomical Region Laterality Modality Endoscopy 03/30/2025 8:17 AM EDT Impressions 03/30/2025 8:40 AM EDT - Non-bleeding internal hemorrhoids. - The examination was otherwise normal on direct and retroflexion views. - No specimens collected. Recommendation: - Discharge patient to home. - Resume previous diet. - Continue present medications. - Repeat colonoscopy in 5 years for surveillance. - Return to GI office PRN. - Resume Plavix (clopidogrel) at prior dose today. Narrative 03/30/2025 8:40 AM EDT [facility] GI Patient Name: Adam Gomez Procedure Date: 03/30/2025 8:17 AM Date of : 1950 Age: 74 Room: ROOM 15 Gender: Female Note Status: Finalized Attending MD: Pedro Marshall MD, Procedure Date No Time: 03/30/2025 Procedure: Colonoscopy Indications: High risk colon cancer surveillance: Personal history of colonic polyps Providers: Pedro Marshall MD Referring MD: Pedro Marshall MD Medicines: Monitored Anesthesia Care Complications: No [...] pulse, and oxygen saturations were monitored continuously.The Olympus Pediatric Colonoscope was introduced through the anus and advanced to the cecum, identified by appendiceal orifice and ileocecal valve. The colonoscopy was somewhat difficult due to a redundant colon. The patient tolerated the procedure well. The quality of the bowel preparation was good. Findings: Non-bleeding internal hemorrhoids were found during retroflexion. The hemorrhoids were small. The exam was otherwise without abnormality on direct and retroflexion views. Procedure Code(s): --- Professional --- G0105, Colorectal cancer screening; colonoscopy on individual at high risk Diagnosis Code(s): --- Professional --- Z86.010, Personal history of colonic polyps CPT copyright 2020 [employer]. All rights reserved. The codes documented in this report are preliminary and upon narcotics and/or vice detective review may be revised to meet current compliance requirements. Pedro Marshall MD 03/30/2025 8:40:31 AM This report has been signed electronically.Pedro Marshall MD Number of Addenda: 0 Note Initiated On: 03/30/2025 8:17 AM Scope In: Scope Out: Endoscopy Department at [facility] - [address] [place] [phone] Procedure Note Pedro Marshall MD - 03/30/2025 [facility] GI Patient Name: Adam Gomez Procedure Date: 03/30/2025 8:17 AM Date of : 1950 Age: 74 Room: ROOM 15 Gender: Female Note Status: Finalized Attending MD: Pedro Marshall MD, Procedure Date No Time: 03/30/2025 Procedure: Colonoscopy Indications: High risk colon cancer surveillance: Personalhistory of colonic polyps Providers: Pedro Marshall MD Referring MD: Pedro Marshall MD Medicines: Monitored Anesthesia Care Complications: No [...] pulse, and oxygen saturations were monitored continuously.The Olympus Pediatric Colonoscope was introduced through theanus and advanced to the cecum, identified byappendiceal orifice and ileocecal valve. The colonoscopy was somewhat difficult due to a redundant colon. The patient tolerated the procedure well. The qualityof the bowel preparation was good. Findings: Non-bleeding internal hemorrhoids were found during retroflexion. The hemorrhoids were small. The exam was otherwise without abnormality ondirect and retroflexion views. Procedure Code(s): --- Professional --- G0105, Colorectal cancer screening; colonoscopy on individual at high risk Diagnosis Code(s): --- Professional --- Z86.010, Personal history of colonic polyps CPT copyright 2020 [employer]. All rights reserved. The codes documented in this report are preliminary and upon narcotics and/or vice detective reviewmay be revised to meet current compliance requirements. Pedro Marshall MD 03/30/2025 8:40:31 AM This report has been signed electronically.Pedro Marshall MD Number of Addenda: 0 Note Initiated On: 03/30/2025 8:17 AM Scope In: Scope Out: Endoscopy Department at [facility] - [address] [place] [phone] IMPRESSION: - Non-bleeding internal hemorrhoids. - The examination was otherwise normal on directand retroflexion views. - No specimens collected. Recommendation: - Discharge patient to home. - Resume previous diet. - Continue present medications. - Repeat colonoscopy in 5 years for surveillance. - Return to GI office PRN. - Resume Plavix (clopidogrel) at prior dosetoday. us Pedro Marshall MD GI~PROCEDURE ORDERABLES Final Result * (ABNORMAL) Lipid panel with reflex to direct LDL (11/20/2024 12:55 PM EDT) Cholesterol 236(H) 0 - 200 mg/dL LAB CHEMISTRY METHOD 11/20/2024 2:52 PM EDT [facility] Triglycerides 173(H) 0 - 150 mg/dL LAB CHEMISTRY METHOD 11/20/2024 2:52 PM EDT [facility] HDL 92 >=40 mg/dL LAB CHEMISTRY METHOD 11/20/2024 2:52 PM EDT [facility] LDL Calculated 109(H) 0 - 100 mg/dL LAB CHEMISTRY METHOD 11/20/2024 2:52 PM EDT [facility] VLDL Cholesterol Ethan 34.6 mg/dL LAB CHEMISTRY METHOD 11/20/2024 2:52 PM EDT [facility] Non HDL Chol. (LDL+VLDL) 144 <145 mg/dL LAB CHEMISTRY METHOD 11/20/2024 2:52 PM EDT [facility] Chol/HDL Ratio 2.6 0.0 - 4.4 LAB CHEMISTRY METHOD 11/20/2024 2:52 PM EDT [facility] Blood Venous blood specimen / Unknown Venipuncture / Unknown 11/20/2024 12:55 PM EDT 11/20/2024 12:55 PM EDT Shayy BELCHER LAB BLOOD ORDERABLES Fi nal Result [facility] [address] [place] [address], * (ABNORMAL) Drug abuse screen 8a panel, urine (11/20/2024 12:55 PM EDT) Amphetamine Screen, Ur Negative Negative LAB CHEMISTRY METHOD 5 7:05 PM [facility] Comment:Certain OTC medicati ons containing ephedrine, phenylephrine, pseudoephedrine and phenylpropanolamine can cause false positive results. Barbiturate Screen, Ur Negative Negative LAB CHEMISTRY METHOD 5 7:05 PM [facility] Benzodiazepine Screen, Ur Negative Negative LAB CHEMISTRY METHOD 5 7:05 PM [facility] Cocaine Screen, Ur Negative Negative LAB CHEMISTRY METHOD 5 7:05 PM T [facility] Opiate Screen, Ur Positive(A ) Negative LAB CHEMISTRY METHOD 5 7:05 PM [facility] Cannabinoid (THC) Screen, Ur Negative Negative LAB CHEMISTRY METHOD 5 7:05 PM [facility] Comment:Specimens from patie nts taking pantoprazole sodium (Protonix) have been shown to produce false positive results. Oxycodone Screen, Ur Positive(A ) Negative LAB CHEMISTRY METHOD 5 7:05 PM EDT [facility] Fentanyl, Ur Negative Negative LAB CHEMISTRY METHOD 7:05 PM [facility] Urine Urine specimen obtained by clean catch procedure / Unknown Non-blood Collection / Unknown 11/20/2024 12:55 PM EDT 11/20/2024 12:55 PM EDT Narrative [facility] - 11/20/2024 7:05 PM EDT Assay cutoffs: Amphetamines 1000 ng/mL Barbiturates 200 ng/mL Benzodiazepines 200 ng/mL Cocaine 300 ng/mL Fentanyl 1 ng/mL Opiates 300 ng/mL Oxycodone 100 ng/mL THC 50 ng/mL Semi-quantitative assay for screening purposes only. Unconfirmed screening result should not be used for non-medical purposes. *ALTERNATE METHOD CONFIRMATION DONE UPON REQUEST ONLY* Shayy BELCHER LAB URINE ORDERABLES [facility] Result [facility] [address] [place] [address], * (ABNORMAL) Basic metabolic panel (11/13/2024 3:40 PM EDT) Sodium 135 133 - 145 mmol/L LAB CHEMISTRY METHOD 11/13/2024 7:08 PM [facility] Potassium 4.3 3.5 - 5.5 mmol/L LAB CHEMISTRY METHOD 11/13/2024 7:08 PM [facility] Chloride 103 96 - 110 mmol/L LAB CHEMISTRY METHOD 11/13/2024 7:08 PM [facility] CO2 24 21 - 32 mmol/L LAB CHEMISTRY METHOD 11/13/2024 7:08 PM [facility] Anion Gap 8 3 - 11 LAB CHEMISTRY METHOD 11/13/2024 7:08 PM [facility] Glucose 102(H) 70 - 100 mg/dL LAB CHEMISTRY METHOD 11/13/2024 7:08 PM EDT [facility] BUN 14 5 - 25 mg/dL LAB CHEMISTRY METHOD 11/13/2024 7:08 PM EDT [facility] Creatinine 0.65 0.50 - 1.10 mg/dL LAB CHEMISTRY METHOD 11/13/2024 7:08 PM EDT [facility] eGFR 94 >=60 mL/min/1. 73m2 LAB CHEMISTRY METHOD 11/13/2024 7:08 PM EDT [facility] Comment:Calculation based on the Chronic Kidney Disease Epidemiology Collaboration (CKD-EPI) equation refit without adjustment for race. BUN/Creatinine Ratio 21.5 LAB CHEMISTRY METHOD 11/13/2024 7:08 PM EDT [facility] Calcium 9.6 8.5 - 10.5 mg/dL LAB CHEMISTRY METHOD 11/13/2024 7:08 PM EDT [facility] Blood Venous blood specimen / Unknown Venipuncture / Unknown 11/13/2024 3:40 PM EDT 11/13/2024 3:40 PM EDT Rodger Teixeira MD LAB BLOOD ORDERABLES Final Resu lt [facility] [address] [place] [address], * Hm Falls Risk Assessment (01/17/2024) Falls Risk Assessment [...] Result * Cervical Cancer Screening: HPV (09/24/2013) Pathologist [facility] Cervical Cancer Screening: HPV abstracted, negative Rashid Hale MD HEALTH MAINTENANCE Final Result * Hepatitis C Screening (08/14/2013) HM Hepatitis C Screening abstracted us Historical Provider HEALTH MAINTENANCE Final Result from Last 3 Months or Most Recently Relevant to Health Maintenance Insurance [place]ICARE [place]ID [place] Advance Directives Documents on File Type Date Recorded Patient Retail Cashier Expl anation Health Care Decision (hx) 05/22/2018 [...] (hx) 05/22/2018 AD GOLDSTEIN DIRECTIVE Care Teams Carton Machine Operator Relationship Specialty Start Date End Date Rodger Teixeira MD [address] [place] [phone] PCP - General Internal Medicine 12/27/12
[2025-06-30 18:26] LABS: Alanine Aminotransferase 13 U/L (0-31); Albumin Level 4.5 g/dL (3.5-5.0); Alkaline Phosphatase 69 U/L (39-117); Anion Gap 13 (12-20); Aspartate Amino Transferase 25 U/L (5-31); Blood Urea Nitrogen 16 mg/dL (9-16); Calcium 9.3 mg/dL (8.4-10.2); Carbon Dioxide 23 mmol/L (22-29); Chloride 106 mmol/L (96-108); Creatinine Clr Calc Pharmacy 43.1; Estimated Glomerular Filt Rate > 60; Lipase 14 U/L (8-78); Magnesium 2.1 mg/dL (1.6-2.6); Potassium 3.6 mmol/L (3.3-5.1); Sodium 138 mmol/L (135-145); Total Protein 7.1 g/dL (6.5-8.0)
[2025-06-30] MEDS: Lactated Ringers 1,000 ML 999 ML IV (19:08)
[2025-06-30] MEDS: iohexoL 350 MG/ML 100 ML INFUS..BTL IV (19:20)
[2025-06-30 20:00] VITALS: BP 134/51; PULSE 67; TEMP 36.5; O2SAT 97
--- NOTE | 2025-06-30 20:34 | ED.GENADULT ---
HPI - General Adult General Chief complaint: Abdominal Pain Stated complaint: Abdominal pain/Diarrhea Time Seen by Provider: 06/30/25 18:32 Source: patient, RN notes reviewed and old records reviewed Mode of arrival: ambulatory Limitations: no limitations History of Present Illness ED Provider: Helen URIBE narrative: 74-year-old female presents for evaluation of abdominal pain with nausea vomiting and diarrhea. She reports that her symptoms started 4 days ago with upper abdominal pain, nausea or vomiting. Over last 2 days the vomiting and nausea has resolved but she is not complaining of nonbloody diarrhea she reports that her symptoms are mild pain Denies any recent travel or antibiotic use. Denies any sick contacts pain Denies any fevers, chills, cough, shortness of breath she reports a previous cholecystectomy but denies any other abdominal surgeries Related Data Previous Rx's ?Medication ?Instructions ?Recorded omeprazole 20 mg capsule,delayed 20 mg PO BID 2 weeks #28 caps 01/24/22 release ondansetron 4 mg disintegrating 4 mg PO Q8H PRN nausea and 01/24/22 tablet vomiting #20 tabs ondansetron 4 mg disintegrating 4 mg PO Q8H PRN nausea and 02/23/23 tablet vomiting #20 tabs loratadine 10 mg tablet (Claritin) 10 mg PO DAILY PRN allergic 04/13/23 symptoms #10 tabs olopatadine 0.2 % eye drops (Eye 1 drp ophthalmic (eye) QAM PRN 04/13/23 Allergy Itch Relief) itching #2.5 mL nitrofurantoin 100 mg PO BID #14 caps 04/20/24 monohydrate/macrocrystals 100 mg capsule (Macrobid) phenazopyridine 200 mg tablet 200 mg PO TID PRN dysuria 6 doses 04/20/24 #6 tabs azithromycin 250 mg tablet See Rx Instructions PO .COMPLEX #6 03/11/25 tabs prednisone 20 mg tablet 40 mg (2 x 20 mg) PO DAILY #8 tabs 03/11/25 Allergies Allergy/AdvReac Type Severity Reaction Status Date / Time ibuprofen (From Motrin) Allergy Nausea Verified 06/30/25 17:55 Review of Systems Constitutional: Constitutional: Denies body ache(s), Denies chills, Denies fever(s) and Denies headache(s) Eyes: Eyes: Denies blurry vision ENT: Denies dizziness and Denies headache(s) Cardiovascular: Cardiovascular: Denies chest pain and Denies dyspnea on exertion Respiratory: Respiratory: Denies cough and Denies dyspnea on exertion Gastrointestinal: Gastrointestinal: Reports abdominal pain, Reports diarrhea, Reports loose stools, Reports nausea and Denies vomiting Musculoskeletal: Musculoskeletal: Denies back pain Integumentary/Breasts: Skin/Breast: Denies rash Neurologic: Denies dizziness and Denies headache(s) Psychiatric: Psychiatric: Denies anxiety [facility] Past Medical History Medical History (Updated 06/30/25 @ 20:35 by Rey Cervantes) CVA (cerebral vascular accident) Occlusion of femoral artery Depression Asthma Social History Social History Alcohol intake: never Patient Tobacco Use Status: Former Tobacco user Smoked in Last 30 Days: No Use of substances other than those prescribed or required for medical reasons: No Advance Directives: No Advance Directives Information Provided: No Physical Exam ED Vital Signs: Vital Signs - 24 hr 06/30/25 17:50 06/30/25 20:00 Temperature 97.3 F 97.7 F Pulse Rate 85 67 Respiratory Rate 20 Blood Pressure 145/70 H 134/51 L Pulse Oximetry 98 97 Oxygen Delivery Method Room Air Room Air BMI result Body Mass Index 15.1 Const General: healthy appearing, comfortable, no acute distress, alert and awake Nutritional Appearance: well nourished Orientation/consciousness: patient oriented x3 HENMT Head: Yes normocephalic and Yes atraumatic Eyes Eyelids: Yes eyelids normal Conjunctivae: conjunctivae normal Sclerae: sclerae normal Corneas: corneas normal Pupils: Equal, round and reactive pupils present EOM: EOMs intact bilaterally Neck Neck: Yes full ROM Resp Effort & Inspection: normal respiratory effort, able to speak in complete sentences and not labored Cardio Rate: regular rate Rhythm: regular rhythm GI Inspection: No distended Palpation (GI): Soft to palpation, not firm, no guarding and not rigid Skin General skin exam: elasticity normal Neuro General: patient oriented x3 Cranial nerves: Yes Equal, round and reactive pupils present and Yes Bilaterally intact EOM present Cognition (Neuro): normal cognition Extrem Other: Moving all extremities well without any obvious deformities Medications Administered Discontinued Medications Generic Name Dose Route Start Last Admin Trade Name Freq PRN Reason Stop Dose Admin Lactated Ringer's 1,000 mls @ 999 mls/hr 06/30/25 19:00 06/30/25 20:24 Lr IV 06/30/25 20:00 Infused .Q1H1M AURELIA Infusion Iohexol 100 ml 06/30/25 19:20 06/30/25 19:20 Iohexol 350 Mg/Ml 100 Ml Infus..Btl IV 06/30/25 19:21 85 ml ONCE ONE Administration Morphine Sulfate 2 mg 06/30/25 18:50 06/30/25 19:06 Morphine Sulfate 4 Mg/Ml Cartridge IVPUSH 06/30/25 18:51 2 mg ONCE ONE Administration Protocol Ondansetron HCl 4 mg 06/30/25 18:52 06/30/25 19:06 Ondansetron Hcl 4 Mg/2 Ml Vial IVPUSH 06/30/25 18:53 4 mg ONCE ONE Administration Medical Decision Making Medical Decision Making [facility] Narrative: 74-year-old female presents for evaluation of a 4 day history abdominal pain nausea and vomiting and now diarrhea. Denies any black or bloody stool. She is quite well appearing, vital signs are stable on arrival. her vital signs are quite reassuring, no leukocytosis significant anemia or left shift. No significant chemistry abnormalities warranting intervention. Given her left lower quadrant tenderness that he CT scan was ordered to evaluate for diverticulitis. There was no evidence of diverticulitis but mild colitis. I do not feel the antibiotic use is indicated at this time. We will discharge the patient with symptomatic care. she has been unable to provide a stool sample blood does not have any risk factor for Clostridium difficile and she can be discharged without this tested Differential Diagnosis Differential Diagnoses: The differential diagnosis associated with the presentation includes Colitis Diverticulitis C diff less likely bowel obstruction less likely Admission/Observation Consideration of admission/observation: Escalation of care including admission/observation considered the patient had no vital signs, lab abnormalities or imaging findings to require admission Lab Data [facility] Lab Attestation statement: I reviewed the patient's lab results. as above 06/30/25 18:05 06/30/25 18:05 Labs: Lab Results 06/30/25 Range/Units 18:05 WBC 5.6 (4.8-10.8) X10*3/uL RBC 4.70 (4.20-5.50) X10*6/uL Hgb 14.7 (12.0-16.0) g/dl Hct 43.0 (37.0-47.0) % MCV 91.5 (80.0-98.0) fL MCH 31.3 (27.0-33.0) pg MCHC 34.2 (31.0-35.0) g/dl RDW 12.7 (11.0-16.0) % Plt Count 241 (160-400) X10*3/uL MPV 10.1 (9.4-12.3) fL Immature Gran % (Auto) 0.2 (0.0-0.4) % Neut % (Auto) 39.4 L (45-73) % Lymph % (Auto) 47.8 H (20-40) % [place] % (Auto) 8.7 (2-11) % Eos % (Auto) 2.5 (0-4) % Baso % (Auto) 1.4 (0-2) % Lymph # (Auto) 2.7 (1.2-4.9) X10*3/uL [place] # (Auto) 0.5 (0.1-1.2) X10*3/uL Eos # (Auto) 0.1 (0.0-0.4) X10*3/uL Baso # (Auto) 0.1 (0.0-0.2) X10*3/uL Abs Immat Gran (auto) 0.01 (0.00-0.03) X10*3/uL Absolute Neuts (auto) 2.2 (2.0-8.3) x10*3/uL Absolute Nucleated RBC 0.000 (0.0-0.012) X10*3/uL Nucleated RBC % (auto) 0.0 (0.0-0.2) /100WBC Sodium 138 (135-145) mmol/L Potassium 3.6 (3.3-5.1) mmol/L Chloride 106 (96-108) mmol/L Carbon Dioxide 23 (22-29) mmol/L Anion Gap 13 (12-20) BUN 16 (9-16) mg/dL Creatinine 0.72 (0.5-1.4) mg/dL Estim Creat Clear Calc 43.1 Estimated GFR > 60 Random Glucose 119 H (60-115) mg/dL Calcium 9.3 (8.4-10.2) mg/dL Magnesium 2.1 (1.6-2.6) mg/dL Total Bilirubin 0.5 (0.0-1.0) mg/dL AST 25 (5-31) U/L ALT 13 (0-31) U/L Alkaline Phosphatase 69 (39-117) U/L Total Protein 7.1 (6.5-8.0) g/dL Albumin 4.5 (3.5-5.0) g/dL Lipase 14 (8-78) U/L Radiology Impression Discussion of test interpretation with radiology: I have reviewed the radiologist's reading. Radiologist Impression: Findings: Bibasilar atelectasis noted The gallbladder is absent. There is postsurgical prominence of the common bile duct and intrahepatic bile ducts. No liver lesion. The spleen, adrenal glands and pancreas are unremarkable. Kidneys, ureters and bladder are within normal limits. Uterus and adnexa are within normal limits. Abnormal thickening of the descending colon with surrounding stranding. No pneumatosis, free air, free fluid or abscess. Moderate atherosclerotic disease. No acute osseous finding. Impression: Findings suggest mild colitis most pronounced along the descending colon This document has been electronically signed by: Tam Costa MD on 06/30/2025 20:14:48 Discharge Plan Discharge Clinical Impression: Colitis Patient Disposition: Home, Self-Care Instructions: Colitis (ED) Additional Instructions: your workup in the ER today was reassuring pain Your CT scan showed mild colitis which is likely contributing to your diarrhea I recommend a brat diet with bananas, rice, applesauce and toast to help slow down the diarrhea. Hydrate well. Use Imodium as needed for diarrhea. Follow up with your primary doctor, return for new or worsening symptoms Prescriptions: No Action ondansetron 4 mg tablet,disintegrating 4 mg PO Q8H PRN (Reason: nausea and vomiting) Qty: 20 0RF omeprazole 20 mg capsule,delayed release(DR/EC) 20 mg PO BID 14 Days Qty: 28 0RF ondansetron 4 mg tablet,disintegrating 4 mg PO Q8H PRN (Reason: nausea and vomiting) Qty: 20 0RF nitrofurantoin monohyd/m-cryst [Macrobid] 100 mg capsule 100 mg PO BID Qty: 14 0RF Rx Instructions: must administer with a meal/food phenazopyridine 200 mg tablet 200 mg PO TID PRN (Reason: dysuria) Qty: 6 0RF olopatadine [Eye Allergy Itch Relief] 0.2 % drops 1 drp ophthalmic (eye) QAM PRN (Reason: itching) Qty: 2.5 0RF loratadine [Claritin] 10 mg tablet 10 mg PO DAILY PRN (Reason: allergic symptoms) Qty: 10 0RF azithromycin 250 mg tablet See Rx Instructions .ROUTE .COMPLEX Qty: 6 0RF Rx Instructions: For 250 mg dose pack: take 500 mg today (day 1), then 250 mg for 4 days (days 2-5) prednisone 20 mg tablet 40 mg PO DAILY Qty: 8 0RF Print Language: Brazilian
[2025-06-30 20:49] VITALS: BP 153/64; PULSE 66; RESP 16; TEMP 36.4; O2SAT 96
== END 2025-06-30 20:52 | disposition home or self-care (01) ==
PROVIDERS: Emergency Provider Emergency Medicine; PCP Internal Medicine
DX: K52.9 Noninfective gastroenteritis and colitis, unspecified (principal); R10.32 Left lower quadrant pain; R11.2 Nausea with vomiting, unspecified; J45.909 Unspecified asthma, uncomplicated; Z87.891 Personal history of nicotine dependence
CPT/HCPCS: 36415; 74177; 80053; 83690; 83735; 85025; 96361; 96374; 96375; 99285; J2270; J2405; J7120; Q9967

== ENCOUNTER → 2025-06-30 18:50 | Outpatient (BNV) | payer MEDICARE, MEDICAID, SELFPAY | PROVIDERS: Emergency Provider Emergency Medicine; PCP Internal Medicine; Visit Provider Radiology Vascular & Interventional Radiology | DX: R10.32 Left lower quadrant pain (principal) | CPT/HCPCS: 74177 ==